=== PATIENT | male | born 1970 | race Caucasian/White ===

== ENCOUNTER 2020-02-29 15:01 | Emergency (ER) | payer BC, SELFPAY ==
[2020-02-29 15:28] VITALS: BP 152/90; PULSE 89; RESP 18; TEMP 36.7; O2SAT 96
--- NOTE | 2020-02-29 15:35 | ED.DENTAL ---
HPI - Dental/Oral General Chief complaint: Dental/Oral Stated complaint: Swollen left side of face Time Seen by Provider: 02/29/20 15:36 Source: patient and RN notes reviewed History of Present Illness HPI Narrative: Patient is a 49-year-old male that presents the urgent care with complaints of upper left dental pain. Patient states that he got his tooth pulled on Tuesday and he developed swelling and pain within the last couple days. Patient states that he has continued to smoke but did wait 48 hours after the procedure. Denies any fever, chills, nausea, vomiting. Patient states he has been on clindamycin and tramadol and his dentist told him to be seen at the urgent care if his pain was too severe to wait until Tuesday next week. No other acute complaints. No acute distress noted. Patient aware of the plan of care. Related Data Home Medications Medication Instructions Recorded Confirmed albuterol sulfate 90 mcg/actuation 2 puff INHALATION Q4H PRN gm 09/25/19 aerosol inhaler atorvastatin 02/29/20 clindamycin HCl 02/29/20 glipizide mg 02/29/20 sitagliptin-metformin [Janumet XR] tablet PO 02/29/20 tramadol mg 02/29/20 Allergies Allergy/AdvReac Type Severity Reaction Status Date / Time Penicillins Allergy Unknown Vomiting Verified 12/24/19 15:36 Review of Systems Review of Systems: Narrative: CONSTITUTIONAL: Denies fever, chills, or sweats. EYES: Denies visual changes, redness, or discharge. ENT: Denies rhinorrhea, congestion, sore throat, or otalgia. Reports of left upper dental pain CARDIOVASCULAR: Denies chest pain, palpitations, or edema. RESPIRATORY: Denies cough or dyspnea. GASTROINTESTINAL: Denies abdominal pain, nausea, vomiting, or diarrhea. GENITOURINARY: Denies dysuria or hematuria. SKIN: Denies rash or itching. MUSCULOSKELETAL: Denies back pain, joint pain, or myalgia. NEUROLOGIC: Denies headache, numbness, or weakness. All other systems reviewed are negative, except as documented in HPI. [facility] Social History Social History Smoking packs per day: 1 Smoking cigarettes per day: 20.0 Years smoked: 30 Smoking pack-years: 30.00 Smoking status: Current every day smoker Tobacco type: cigarettes Second hand tobacco smoke exposure: Yes Alcohol intake: current Substance use: never Gender identity (if verbalized by the patient): Male Spiritual care concerns: No Agree to blood products: Yes Comments At the time of my signature, I reviewed and agree with the nursing past medical, surgical, social, and family history. There is no relevant family history pertinent to the patient complaint. Exam Narrative: Exam Narrative: GENERAL: This is a well-nourished, well-developed patient, in no apparent distress. HEAD: normocephalic, atraumatic. EYES: PERRL. Sclera clear/white. Vision is grossly intact. EARS: External ears normal NOSE: External nose normal with no obvious nasal discharge THROAT: Mucous membranes moist, posterior pharynx clear. DENTAL: Likely dry socket noted to upper left second premolar, tooth #13; notable edema noted to the left side of the upper and lower jawline with moderate tenderness NECK: Neck supple, non-tender without lymphadenopathy, masses or thyromegaly. SKIN: warm, intact with no suspicious lesions or rash, good texture and turgor. NEURO: awake, alert, and oriented to person, place and time. There were no obvious focal neurologic abnormalities. EXTREMITIES: No clubbing, cyanosis, or edema. Course Vital Signs Vital signs: Vital Signs Temperature 98.0 F 02/29/20 15:28 Pulse Rate 89 02/29/20 15:28 Respiratory Rate 18 02/29/20 15:28 Blood Pressure 152/90 H 02/29/20 15:28 Pulse Oximetry 96 02/29/20 15:28 Temperature 98.0 F 02/29/20 15:28 Pulse Rate 89 02/29/20 15:28 Respiratory Rate 18 02/29/20 15:28 Blood Pressure 152/90 H 02/29/20 15:28 Pulse Oximetry 96 02/29/20 15:28
== END 2020-02-29 16:10 | disposition home or self-care (01) ==
PROVIDERS: Emergency Provider Nurse Practitioner Family; PCP Family Medicine
DX: M27.3 Alveolitis of jaws (principal); K08.89 Other specified disorders of teeth and supporting structures; F17.210 Nicotine dependence, cigarettes, uncomplicated
CPT/HCPCS: 99213; G0463

== ENCOUNTER 2020-04-07 20:28 | Inpatient (IN) | payer BC, SELFPAY ==
--- NOTE | ~2020-04-07 | MR_ITS ---
EXAMINATION: MR MRCP wo/w con/w 3D wo ind DATE: 04/08/2020 11:19 INDICATION: Acute pancreatitis. TECHNIQUE: Magnetic resonance imaging (MRI) of the abdomen was performed without and with 15 mL Multi Jim intravenous contrast. Sequences included coronal T2-weighted FS FSE, coronal T2-weighted FSE, a xial T1-weighted LAVA, coronal FS FIESTA, axial dual-echo T1-weighted SPGR, coronal lava-FLEX, sagitt al T2-weighted FSE, axial T2-weighted FSE, and axial DWI. Thick-slab T2-weighted FSE images were obta ined for magnetic resonance cholangiopancreatography (MRCP). Maximum intensity projection 3-D reconst ructions of the volumetric data were created by the technologist. Postcontrast sequences included cor onal LAVA-flex and time course of axial T1-weighted LAVA. COMPARISON: Abdomen ultrasound 04/08/2020, CT abdomen and pelvis 04/07/2020 FINDINGS: ABDOMEN MRI: There is diffuse hepatic steatosis. The gallbladder, spleen, adrenal glands, and right k idney are normal. There are cysts in left kidney measuring up to 5 mm. There is edema around the head of the pancreas, consistent with acute interstitial pancreatitis. There are no dilated loops of tabatha l. There are no pathologically enlarged lymph nodes. There is no free intraperitoneal fluid. ABDOMEN MRCP: The common duct is normal and measures 3 mm. No choledocholithiasis. IMPRESSION: 1. Mild acute interstitial pancreatitis. 2. Diffuse hepatic steatosis. Reviewed, dictated and finalized at location A.
--- NOTE | ~2020-04-07 | CT_ITS ---
EXAMINATION: CT abdomen pelvis w con EXAM DATE: 04/07/2020 22:55 INDICATION: Low abdominal pain. TECHNIQUE: Spiral CT of the abdomen and pelvis was performed following intravenous injection of 100 m L Omnipaque 350. Axial, coronal and sagittal images were reviewed. The dose-length product (DLP) fo r this examination was 601.21 mGy-cm. The exposure was tailored according to patient size (auto mA e xposure control), and iterative reconstruction (ASIR) was used as additional dose reduction technique . Comparison is made to prior examination from 08/31/2015. FINDINGS: The liver, spleen, adrenal glands and pancreas are unremarkable. Gallbladder is unremarkab le. No biliary obstruction. Portal and splenic veins are patent. Kidneys enhance symmetrically. T here is no hydronephrosis. The prostate is unremarkable. The bladder is unremarkable. There is no retroperitoneal or pelvic lymphadenopathy. Probable appendectomy. The stomach and small bowel are unremarkable. There is expected amount of co lonic stool. No free intraperitoneal gas. The heart is normal in size. There are no pericardial or pleural effusions. The lung bases are unremarkable. There are no osteoblastic or osteolytic lesi ons identified. IMPRESSION: 1. No acute intra-abdominal findings. Reviewed, dictated and finalized at location A.
--- NOTE | ~2020-04-07 | US_ITS ---
EXAMINATION: US right upper quadrant DATE: 04/08/2020 07:46 INDICATION: Right upper quadrant abdominal pain. TECHNIQUE: Multiple grayscale and Doppler ultrasound images of the abdomen were obtained. COMPARISON: CT abdomen and pelvis 04/07/2020 FINDINGS: The visualized portions of the head of the pancreas are normal. There is diffuse hepatic st eatosis. There is normal flow in main portal vein. The gallbladder is normal in size. No gallstones o r gallbladder wall thickening. There was no sonographic Ambrocio sign. The common duct is normal and me asures 4 mm. IMPRESSION: 1. Diffuse hepatic steatosis. Reviewed, dictated and finalized at location A.
[2020-04-07 20:36] VITALS: BP 126/93; PULSE 103; RESP 18; TEMP 36.3; O2SAT 99
[2020-04-07 21:00] LABS: Basophils Absolute Auto 0.1 K/mm3 (0.0-0.1); Basophils Percent Auto 0.5 % (0.2-1.2); Eosinophils Absolute Auto 0.3 K/mm3 (0-0.3); Eosinophils Percent Auto 2.3 % (0-4.4); Hematocrit 45.7 % (42.0-52.0); Hemoglobin 16.5 g/dL (14.0-18.0); Immature Granulocyte Absolute 0.03 K/mm3 (0.00-0.031); Immature Granulocyte Percent A 0.3 % (0-0.5); Lymphocytes Absolute Auto 3.15 K/mm3 (0.9-3.2); Lymphocytes Percent Auto 26.3 % (18.3-44.2); Mean Corpuscular HGB Conc 36.1 g/dl (32-36); Mean Corpuscular Hemoglobin 32.2 pg (26-34); Mean Corpuscular Volume 89.1 fl (80-100); Mean Platelet Volume 10.1 fl (7.4-10.4); Monocytes Absolute Auto 1.1 K/mm3 (0.1-0.6); Monocytes Percent Auto 8.8 % (2.6-8.5); Neutrophils Absolute Auto 7.4 K/mm3 (1.3-6.7); Neutrophils Percent Auto 61.8 % (45.5-73.1); Platelet Count Result 310 k/mm3 (150-375); Red Blood Count 5.13 M/mm3 (4.6-6.20); Red Cell Distribution Width 11.7 % (11.5-14.5)
[2020-04-07 21:08] LABS: Add Urine Microscopic? YES; Appearance Urine Clear (Clear); Bilirubin Urine Negative (Negative); Blood Urine Negative (Negative); Color Urine Yellow (Yellow); Glucose Urine UA 3+ mg/dL (Negative); Ketones Urine Trace mg/dL (Negative); Leukocyte Esterase Ur Negative LEU/UL (Negative); Nitrate Urine Negative (Negative); Protein Urine Negative (Negative); RBC Urine 0-2 /hpf (0-2); Specific Grav Ur 1.023 (1.001-1.035); Squamous Epithelial Cell Urine Rare /hpf (Few); Urobilinogen Urine Negative mg/dL (<2.0); WBC Urine 0-3 /hpf
[2020-04-07 21:17] LABS: Alanine Aminotransferase 12 U/L (4-50); Albumin Level 4.2 g/dL (3.5-5.1); Alkaline Phosphatase 85 U/L (38-126); Aspartate Amino Transferase 18 U/L (17-59); Bilirubin,Total 0.6 mg/dL (0.2-1.3); Blood Urea Nitrogen 12 mg/dL (9-20); Calcium 8.9 mg/dL (8.4-10.2); Carbon Dioxide 26 mmol/L (22-30); Chloride 99 mmol/L (98-107); Estimated CRCL calculation 110 ml/min; Estimated Glomerular Filt Rate > 60; Glucose 315 mg/dL (75-110); Sodium 133 mmol/L (137-145)
[2020-04-07 21:24] LABS: Lipase 2728 U/L (23-300)
[2020-04-07 22:01] VITALS: BP 136/74; PULSE 80; RESP 19; O2SAT 97
--- NOTE | 2020-04-07 22:32 | ED.ABDPAIN ---
HPI - Abdominal Pain General Chief Complaint: Abdominal Pain Stated Complaint: gallbladder Time Seen by Provider: 04/07/20 22:03 Source: patient Mode of arrival: ambulatory Limitations: no limitations History of Present Illness HPI narrative: This patient is a 49 year old male who presents for evaluation of right upper abdominal pain . He states he has had constant right upper abdominal pain for over 1 week and his pain has continued to worsen. His pain radiates around to his right flank . He has associated nausea but no vomiting. He denies diarrhea but he states his stool is loose due to taking laxatives. He was evaluated by his primary care physician today and he was told he had gallbladder disease. But patient states he has not had official testing diagnosing him with gallstones. MD elicited complaint: abdominal pain Onset (ago): week(s) (1) Related Data Home Medications Medication Instructions Recorded Confirmed ertugliflozin 5 mg tablet 5 mg PO QAM 03/24/20 04/08/20 esomeprazole magnesium [Nexium] 40 mg PO DAILY 04/08/20 04/08/20 sitagliptin-metformin [Janumet XR] 1 tablet PO BID 04/08/20 04/08/20 Allergies Allergy/AdvReac Type Severity Reaction Status Date / Time Penicillins Allergy Unknown Vomiting Verified 04/07/20 16:04 clindamycin Allergy Swelling Verified 04/07/20 16:04 Review of Systems Review of Systems: All systems reviewed & are unremarkable except as noted in HPI and below Constitutional: Constitutional: Denies chills and Denies fever(s) Gastrointestinal: Gastrointestinal: Reports abdominal pain, Denies constipation, Reports nausea and Denies vomiting Genitourinary: Genitourinary: Denies hematuria Musculoskeletal: Musculoskeletal: Reports back pain PMF Past Medical History Medical History Diabetes mellitus Hyperlipidemia Tobacco abuse Surgical History Surgical History History of appendectomy History of tonsillectomy Family History Family History (Updated 04/08/20 @ 01:42 by Francie Gonzalez RN) Mother Family history of diabetes mellitus in first degree relative Hypertension Asthma Renal disease Grandparent Family history of malignant neoplasm of uterus Family history of malignant neoplasm of brain Sibling Asthma Daughter Asthma Other Chronic obstructive pulmonary disease uncle Father Family history of diabetes mellitus in first degree relative Hypertension Social History Social History Smoking packs per day: 2 Smoking cigarettes per day: 40.0 Years smoked: 30 Smoking pack-years: 60.00 Smoking status: Heavy tobacco smoker Tobacco type: cigarettes Second hand tobacco smoke exposure: Yes Alcohol intake: former Drinks per week: 6 Substance use: never Gender identity (if verbalized by the patient): Male Spiritual care concerns: No Agree to blood products: Yes Exam Narrative: Exam Narrative: GENERAL: Well-appearing, well-nourished, and in no acute distress. HEAD: Normocephalic, atraumatic EYES: PERRLA and EOMI, conjunctiva clear without discharge THROAT:Mucous membranes moist, Oropharynx normal without erythema, exudate, peritonsillar swelling or fluctuance NECK: Supple, without lymphadenopathy or mass RESPIRATORY: No respiratory distress, Airway patent, Respirations non-labored, Clear to auscultation without rales, rhonchi or wheeze HEART: Regular rate and rhythm. No murmur heard. Normal peripheral pulses. ABDOMEN: Soft,RUQ, nondistended, normal active bowel sounds. No masses. No rebound or guarding, No organomegaly. EXTREMITIES: No edema, normal strength with full range of motion. SKIN: Warm, dry, normal color without rash NEURO: Alert and oriented x3. CN 2-12 grossly intact. No focal deficits. PSYCH: Normal mood and affect. Course Reevaluati
[2020-04-07] MEDS: ONDANSETRON INJ 4 MG/2 ML VIAL IV PUSH (22:37)
[2020-04-07] MEDS: MORPHINE SULFATE 4 MG/ML INJ IV PUSH (22:39)
--- NOTE | 2020-04-07 22:56 | PC.NURSE ---
Patient in CT
[2020-04-07] MEDS: LACTATED RINGERS 1,000 ML 999 ML IV CONT (23:04)
[2020-04-07 23:09] VITALS: TEMP 36.3
[2020-04-07 23:11] VITALS: BP 128/78; PULSE 82; RESP 22; O2SAT 95
[2020-04-08 00:37] VITALS: BP 123/74; PULSE 86; RESP 16; TEMP 36.8; O2SAT 100
[2020-04-08 01:25] VITALS: BP 114/72; PULSE 70; RESP 18; TEMP 36.6; O2SAT 97; BMI 27.6
--- NOTE | 2020-04-08 01:31 | ADMGEN ---
This patient, Sesar Greenwood, was admitted to [facility] Surg Room 322-01. Patient/family oriented to hospital policies and general routines including ID bracelet, bed and alarms, visiting hours, pain management, procedures, bathroom and other care routines, personal items, smoking policy, room service/diet, and visiting hours. Valuables list has been completed. Information on how to activate the Rapid Response Team has been discussed. Patient/Family are encouraged to report perceived risks to care and to ask questions if they do not understand what they are told or what they should do.
[2020-04-08] MEDS: MORPHINE SULFATE 4 MG/ML INJ IV PUSH ×5 (01:49→21:08)
[2020-04-08] MEDS: LACTATED RINGERS 1,000 ML 125 ML IV CONT ×3 (01:57→17:10)
[2020-04-08 06:00] VITALS: BP 121/81; PULSE 85; RESP 18; TEMP 37; O2SAT 92
[2020-04-08] MEDS: PANTOPRAZOLE SODIUM IV 40 MG VIAL IV PUSH (08:30)
[2020-04-08] MEDS: ONDANSETRON INJ 4 MG/2 ML VIAL IV PUSH ×4 (08:30→21:12)
--- NOTE | 2020-04-08 09:10 | PM.IMHP ---
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 He reports that he developed RUQ/epigastric abdominal pain radiating to the right upper back/flank last Tuesday (03/29) which has progressively worsened. He saw his PCP yesterday and RUQ US and STAT labs were ordered. He reports that his pain became so severe last night that he decided to proceed to the ED for further evaluation. He also reports associated nausea and anorexia. He initially thought he was constipated so he tried Gas-X and laxatives without relief. He reports that pain is worse lying back and better leaning forward. He denies diarrhea. He denies vomiting but does note dry heaves. He reports that he was recently prescribed ertugliflozin approximately 2 weeks ago. He denies any other medication changes. He denies alcohol use. He denies chest pain, shortness of breath, and palpitations. He has no other concerns at this time and reports that his pain is improving. He reports that he has not taken his PO hypoglycemic agents in 1 week due to his pain. Initial workup in the ED revealed WBC 12,000, Hb 16.5, Hct 45.7, sodium 133, and glucose 315. CMP was otherwise unremarkable. LFTs were within normal limits with AST 18, ALT 12, and ALP 85. Bilirubin was normal at 0.6. Lipase was 2,728. UA had 3+ glucose and was otherwise unremarkable. CT abd/pelvis revealed normal pancreas and gallbladder with no other acute intra-abdominal findings. RUQ US was performed today and revealed diffuse hepatic steatosis. The gallbladder was normal in size without gallstones or gallbladder wall thickening. The common bile duct was normal at 4mm. He was admitted to the hospitalist service for acute pancreatitis. He also reports that he was treated for a gingival abscess which has resolved. He follows with his dentist for peridontitis and reports no acute issues at this time. Review of Systems Review of Systems: Narrative: Constitutional: Denies subjective fever. Reports occasional chills. Reports fatigue. Reports decreased appetite due to pain. Eyes: Reports occasional blurred vision when his blood sugars are high. Denies acute vision change or pain. No additional eye complaints. ENT: Denies change in hearing, nasal congestion, dysphagia, odynophagia, and sore throat. Cardiovascular: Denies palpitations and chest pain. Denies PND and orthopnea. Denies dyspnea on exertion. Respiratory: Denies cough and shortness of breath. Gastrointestinal: As above in HPI. Genitourinary: Denies dysuria, frequency, urgency, and hesitancy. Musculoskeletal: Denies joint pain and swelling. Denies muscle cramps and weakness. Skin: Denies lesions and wounds. Neurologic: Denies focal weakness, paresthesias, confusion, and speech change. Psychiatric: Denies mood change. Denies anxiety and depression. Hematologic: Reports occasional bruising. Denies bleeding. All systems reviewed & are unremarkable except as noted in HPI and below PMFSH Past Medical History Medical History Diabetes mellitus Hyperlipidemia Neuropathy Tobacco abuse Surgical History Surgical History History of appendectomy History of tonsillectomy Family History Family History (Updated 04/08/20 @ 09:45 by Ketty Edmond PA-C) Mother Hypertension Asthma Renal disease Diabetes mellitus Grandparent Family history of malignant neoplasm of uterus Family history of malignant neoplasm of brain Sibling Asthma Daughter Asthma Other Chronic obstructive pulmonary disease uncle Father Family history of diabetes mellitus in first degree relative Hypertension Social History Social
[2020-04-08 09:28] LABS: Glucose Point of Care 258 (65-105)
[2020-04-08] MEDS: ENOXAPARIN 40 MG/0.4 ML SYRINGE SUB-Q (12:28)
[2020-04-08] MEDS: INSULIN ASPART (*BKC) 100 UNITS/ML SUB-Q (12:28)
[2020-04-08 12:32] LABS: Hematocrit 42.5 % (42.0-52.0); Hemoglobin 15.1 g/dL (14.0-18.0); Mean Corpuscular HGB Conc 35.5 g/dl (32-36); Mean Corpuscular Hemoglobin 31.5 pg (26-34); Mean Corpuscular Volume 88.7 fl (80-100); Mean Platelet Volume 10.1 fl (7.4-10.4); Platelet Count Result 278 k/mm3 (150-375); Red Blood Count 4.79 M/mm3 (4.6-6.20); Red Cell Distribution Width 11.5 % (11.5-14.5); White Blood Count 13.4 K/mm3 (4.5-10.0)
[2020-04-08 12:45] LABS: Cholesterol 140 mg/dL (0-200); HDL Direct 21 mg/dL; Triglycerides 147 mg/dL (<150)
[2020-04-08 12:49] LABS: Alanine Aminotransferase 9 U/L (4-50); Albumin Level 3.6 g/dL (3.5-5.1); Alkaline Phosphatase 73 U/L (38-126); Aspartate Amino Transferase 19 U/L (17-59); Bilirubin,Total 0.6 mg/dL (0.2-1.3); Blood Urea Nitrogen 10 mg/dL (9-20); Calcium 8.6 mg/dL (8.4-10.2); Carbon Dioxide 28 mmol/L (22-30); Chloride 103 mmol/L (98-107); Estimated CRCL calculation 130 ml/min; Estimated Glomerular Filt Rate > 60; Glucose 239 mg/dL (75-110); Lipase 806 U/L (23-300); Sodium 134 mmol/L (137-145)
[2020-04-08 12:56] LABS: LDL Cholesterol Direct 101 mg/dL
[2020-04-08 13:01] VITALS: BMI 27.6
[2020-04-08 13:50] LABS: Hepatitis B Surface Antigen Negative (Negative)
[2020-04-08 13:51] LABS: HAV RESULT Negative (Negative); Hepatitis B Core IgM Result Negative (Negative)
[2020-04-08 14:00] VITALS: BP 115/59; PULSE 75; RESP 16; TEMP 36.9; O2SAT 92
[2020-04-08 14:13] LABS: Hepatitis C Virus Antibody Negative (Negative)
[2020-04-08 17:51] LABS: Glucose Point of Care 249 (65-105)
[2020-04-08 17:51] LABS: Glucose Point of Care 197 (65-105)
[2020-04-08 20:40] LABS: Glucose Point of Care 201 (65-105)
[2020-04-08 22:00] VITALS: BP 123/76; PULSE 60; RESP 18; TEMP 36.3; O2SAT 94
[2020-04-09 00:42] LABS: Glucose Point of Care 184 (65-105)
[2020-04-09] MEDS: MORPHINE SULFATE 4 MG/ML INJ IV PUSH ×4 (01:00→21:09)
[2020-04-09] MEDS: LACTATED RINGERS 1,000 ML 150 ML IV CONT ×2 (01:01→06:46)
[2020-04-09] MEDS: ONDANSETRON INJ 4 MG/2 ML VIAL IV PUSH ×2 (05:04→21:09)
[2020-04-09 05:45] LABS: Basophils Percent Auto 0.5 % (0.2-1.2); Eosinophils Absolute Auto 0.4 K/mm3 (0-0.3); Eosinophils Percent Auto 4.1 % (0-4.4); Hematocrit 41.4 % (42.0-52.0); Hemoglobin 14.7 g/dL (14.0-18.0); Immature Granulocyte Absolute 0.02 K/mm3 (0.00-0.031); Immature Granulocyte Percent A 0.2 % (0-0.5); Lymphocytes Percent Auto 35.3 % (18.3-44.2); Mean Corpuscular HGB Conc 35.5 g/dl (32-36); Mean Corpuscular Hemoglobin 31.6 pg (26-34); Monocytes Absolute Auto 0.9 K/mm3 (0.1-0.6); Monocytes Percent Auto 10.2 % (2.6-8.5); Neutrophils Absolute Auto 4.2 K/mm3 (1.3-6.7); Neutrophils Percent Auto 49.7 % (45.5-73.1); Platelet Count Result 254 k/mm3 (150-375); Red Blood Count 4.65 M/mm3 (4.6-6.20); Red Cell Distribution Width 11.4 % (11.5-14.5); White Blood Count 8.5 K/mm3 (4.5-10.0)
[2020-04-09 06:00] VITALS: BP 135/79; PULSE 64; RESP 18; TEMP 36.3; O2SAT 93
[2020-04-09 06:00] LABS: Alanine Aminotransferase 9 U/L (4-50); Albumin Level 3.3 g/dL (3.5-5.1); Alkaline Phosphatase 62 U/L (38-126); Aspartate Amino Transferase 17 U/L (17-59); Bilirubin,Total 0.6 mg/dL (0.2-1.3); Blood Urea Nitrogen 11 mg/dL (9-20); Calcium 8.6 mg/dL (8.4-10.2); Carbon Dioxide 30 mmol/L (22-30); Chloride 103 mmol/L (98-107); Estimated CRCL calculation 130 ml/min; Estimated Glomerular Filt Rate > 60; Glucose 193 mg/dL (75-110); Lipase 545 U/L (23-300); Magnesium 1.8 mg/dL (1.6-2.3); Phosphorus 3.7 mg/dL (2.5-4.5); Sodium 135 mmol/L (137-145)
[2020-04-09 06:54] LABS: Glucose Point of Care 187 (65-105)
[2020-04-09] MEDS: ENOXAPARIN 40 MG/0.4 ML SYRINGE SUB-Q (08:12)
[2020-04-09] MEDS: PANTOPRAZOLE SODIUM IV 40 MG VIAL IV PUSH (08:12)
[2020-04-09 11:15] VITALS: BMI 27.6
--- NOTE | 2020-04-09 12:32 | PM.IMPN ---
Progress Note: A&P Assessment and Plan (1) Acute pancreatitis: Code(s): K85.90 - Acute pancreatitis without necrosis or infection, unspecified Status: Acute Assessment and Plan: The patient reports RUQ/epigastric discomfort radiating to the right back. Pain is worse lying back and relieved sitting forward. Lipase was elevated at 2728 at presentation and is now [address] abd/pelvis was unremarkable and RUQ US showed no evidence of gallbladder disease. Etiology is unclear. He is on sitagliptin but this is not a new medication for him. He denies recent alcohol use. MRCP revealed mild acute interstitial pancreatitis and diffuse hepatic steatosis without any evidence of gallbladder disease. Lipid panel revealed no evidence of hypertriglyceridemia. He reports that his pain is improving and he denies nausea and vomiting. He is requesting to try to advance his diet. Advance to clear liquid diet today Hold sitagliptin at discharge Continue IV fluids Continue IV antiemetics and analgesics Continue to monitor lipase and CMP (2) Mixed hyperlipidemia: Code(s): E78.2 - Mixed hyperlipidemia Status: Chronic Assessment and Plan: Lipid panel revealed LDL 101, HDL 21, total cholesterol 140, and triglycerides 147. LFTs are WNL. Resume atorvastatin once tolerating PO intake (3) Tobacco abuse: Code(s): Z72.0 - Tobacco use Status: Chronic Assessment and Plan: The patient has a 60 pack-year smoking hx. He has declined nicotine patch at this time. Continue to encourage smoking cessation (4) Type 2 diabetes mellitus with hyperglycemia: Code(s): E11.65 - Type 2 diabetes mellitus with hyperglycemia Status: Chronic Assessment and Plan: Poorly controlled with most recent A1C 10.2 03/24. He was recently prescribed ertugliflozin approximately 2 weeks ago by his PCP. Blood sugars were reviewed with a few readings above target. HE will advance to CLD diet today. He met with the clinical perinatal educator today He will need to follow-up outpatient with his PCP for his diabetes management His PO hypoglycmeics are on hold for now. Hold sitagliptin at discharge as this can cause pancreatitis. Initiate hypoglycemic protocol Continue SSI, will increase to moderate dose SSI Continue Q6HR glucose monitoring until tolerating PO intake well Continue to monitor and resume PO hypoglycemics once he is able to tolerate PO intake well (5) DVT prophylaxis: Code(s): Z29.9 - Encounter for prophylactic measures, unspecified Status: Acute Assessment and Plan: Lovenox SQ (6) Hepatic steatosis: Code(s): K76.0 - Fatty (change of) liver, not elsewhere classified Status: Acute Assessment and Plan: RUQ US revealed diffuse hepatic steatosis. He will need to obtain better glycemic control. Hepatitis panel was negative. Encourage lifestyle modifications and follow-up with PCP for better glycemic control Subjective Date/time seen: 04/09/20 12:32 Interval history: Mr. Greenwood is seen and examined at bedside. He reports that his RUQ abdominal pain continues to improve. He reports that he did have pain last night but has not had any severe pain today. He is requesting to eat. He reports that he is passing flatus. He has not had a bowel movement yet. He denies nausea and vomiting. He denies headaches, dizziness, and lightheadedness. He denies subjective fever and chills. He denies shortness of breath and chest pain. He has no other concerns at this time. Review of Systems Review of Systems: All systems reviewed & are unremarkable except as noted in HPI and below Exam Narrative: Exam Narrative: General: Cooperative, pleasant, well-developed and well-nourished 49 y.o. male lying in the semi-recumbent position resting in no acute distress. HEENT: Normocephalic and atraumatic. Conjunctivae and lids normal. EOMI. Mucous m
[2020-04-09 12:47] LABS: Glucose Point of Care 186 (65-105)
[2020-04-09 14:00] VITALS: BP 128/67; PULSE 78; RESP 18; TEMP 36.5; O2SAT 96
[2020-04-09] MEDS: LACTATED RINGERS 1,000 ML 100 ML IV CONT (16:11)
[2020-04-09] MEDS: INSULIN ASPART (*BKC) 100 UNITS/ML SUB-Q (17:11)
[2020-04-09 18:28] LABS: Glucose Point of Care 282 (65-105)
[2020-04-09 21:18] LABS: Glucose Point of Care 269 (65-105)
[2020-04-09 22:00] VITALS: BP 125/61; PULSE 65; RESP 20; TEMP 36.4; O2SAT 95
[2020-04-10] MEDS: LACTATED RINGERS 1,000 ML 100 ML IV CONT (02:29)
[2020-04-10] MEDS: MORPHINE SULFATE 4 MG/ML INJ IV PUSH (03:31)
[2020-04-10] MEDS: ONDANSETRON INJ 4 MG/2 ML VIAL IV PUSH (03:31)
[2020-04-10 06:00] VITALS: BP 135/83; PULSE 70; RESP 20; TEMP 36.6; O2SAT 96
[2020-04-10 06:38] LABS: Alanine Aminotransferase 9 U/L (4-50); Albumin Level 3.6 g/dL (3.5-5.1); Alkaline Phosphatase 64 U/L (38-126); Aspartate Amino Transferase 17 U/L (17-59); Bilirubin,Total 0.7 mg/dL (0.2-1.3); Blood Urea Nitrogen 8 mg/dL (9-20); Carbon Dioxide 31 mmol/L (22-30); Chloride 103 mmol/L (98-107); Estimated CRCL calculation 130 ml/min; Estimated Glomerular Filt Rate > 60; Glucose 208 mg/dL (75-110); Lipase 333 U/L (23-300); Potassium 4.1 mmol/L (3.4-5.0); Sodium 138 mmol/L (137-145)
--- NOTE | 2020-04-10 07:40 | PC.NURSE ---
Outpatient referral started for initial DSMT and MNT. [facility] and Dr. Saenz.
[2020-04-10 08:18] LABS: Glucose Point of Care 233 (65-105)
[2020-04-10] MEDS: ENOXAPARIN 40 MG/0.4 ML SYRINGE SUB-Q (09:32)
[2020-04-10] MEDS: INSULIN ASPART (*BKC) 100 UNITS/ML SUB-Q (09:33)
[2020-04-10] MEDS: glipiZIDE 5 MG TABLET 10 MG PO (09:34)
[2020-04-10] MEDS: metFORMIN HCL 500 MG TABLET PO (09:34)
[2020-04-10] MEDS: ATORVASTATIN 20 MG TABLET PO (09:34)
[2020-04-10] MEDS: PANTOPRAZOLE 40 MG TABLET PO (09:35)
--- NOTE | 2020-04-10 09:55 | PM.DS ---
DS: Admitting Diagnosis Admitting Diagnosis Admitting Diagnosis: Acute pancreatitis without necrosis or infection, unspecified DS: Discharge Diagnosis Discharge Diagnosis (1) Acute pancreatitis: Code(s): K85.90 - Acute pancreatitis without necrosis or infection, unspecified Status: Acute (2) Mixed hyperlipidemia: Code(s): E78.2 - Mixed hyperlipidemia Status: Chronic (3) Tobacco abuse: Code(s): Z72.0 - Tobacco use Status: Chronic (4) Type 2 diabetes mellitus with hyperglycemia: Code(s): E11.65 - Type 2 diabetes mellitus with hyperglycemia Status: Chronic (5) Hepatic steatosis: Code(s): K76.0 - Fatty (change of) liver, not elsewhere classified Status: Acute DS: Summary Hospital Course Reason for hospitalization: RUQ abdominal pain and nausea Hospital Course: Sesar Greenwood is a 49 year old male with PMH significant for 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 He denied alcohol use. Initial workup in the ED revealed WBC 12,000, Hb 16.5, Hct 45.7, sodium 133, and glucose 315. CMP was otherwise unremarkable. LFTs were within normal limits with AST 18, ALT 12, and ALP 85. Bilirubin was normal at 0.6. Lipase was 2,728. UA had 3+ glucose and was otherwise unremarkable. CT abd/pelvis revealed normal pancreas and gallbladder with no other acute intra-abdominal findings. RUQ US was performed today and revealed diffuse hepatic steatosis. The gallbladder was normal in size without gallstones or gallbladder wall thickening. The common bile duct was normal at 4mm. He was treated with IV fluids, bowel rest, and PRN antiemetics and analgesics. He was admitted to the hospitalist service for acute pancreatitis. The etiology was unclear. He is on sitagliptin. MRCP revealed mild acute interstitial pancreatitis and diffuse hepatic steatosis without any evidence of gallbladder disease. Lipid panel revealed no evidence of hypertriglyceridemia. His pain improved and his diet was advanced and he tolerated this well. I spent extensive time (>20 minutes) discussing the importance of smoking cessation with the patient. Tighter glycemic control was also encouraged and he met with the diabetic educator as well. I discussed the importance of low carb diet, exercise, and glycemic control due to the presence of hepatic steatosis. Hepatitis panel was negative. His T2DM is poorly controlled with most recent A1C 10.2 03/24/20. Sitagliptin was held at discharge as this can cause pancreatitis. I discussed insulin with the pt and advised that this may be the best option for him. I spoke with his PCP, Dr. Saenz, and he will follow-up with his PCP within 1 week for diabetes management. His lipase trended down and his sx improved. He was tolerating a consistent carb diet well. He requested to go home. He was discharged in stable condition on the afternoon of 04/10/20. Time spent discussing smoking cessation with patient: more than 10 minutes Status at Discharge Functional status at discharge: independent ambulation Overall status at discharge: patient is back to baseline Time Spent with Patient Time attestation: Total time spent providing and/or coordinating discharge services: 40 minutes Exam Narrative: Exam Narrative: Vitals at Presentation: Temp Pulse Resp BP Pulse Ox 97.3 F L 103 H 18 126/93 H 99 04/07/20 20:36 04/07/20 20:36 04/07/20 20:36 04/07/20 20:36 04/07/20 20:36 Vitals at Discharge: Temp Pulse Resp BP Pulse Ox 97.8 F 70 20 135/83
== END 2020-04-10 14:55 | disposition home or self-care (01) | DRG 440 ==
LOC: ANHED 04-08 00:31 → ANH3MEDSUR 04-08 01:12
PROVIDERS: Physician Assistant; Admitting Provider Internal Medicine; Emergency Provider General Practice; PCP Family Medicine; Visit Provider Family Medicine
DX: K85.90 Acute pancreatitis without necrosis or infection, unspecified (principal); E11.40 Type 2 diabetes mellitus with diabetic neuropathy, unspecified; K76.0 Fatty (change of) liver, not elsewhere classified; E11.65 Type 2 diabetes mellitus with hyperglycemia; E78.2 Mixed hyperlipidemia; F17.210 Nicotine dependence, cigarettes, uncomplicated; Z79.84 Long term (current) use of oral hypoglycemic drugs
CPT/HCPCS: 36415; 74177; 74183; 76376; 76705; 80053; 80061; 80074; 81001; 83690; 83735; 84100; 85025; 85027; 96361; 96372; 96374; 96375; 96376; 99285; A9270; A9577; C9113; G0378; J1650; J1815; J2270; J2405; J7120; Q9967

== ENCOUNTER 2020-06-29 07:09 | Emergency (ER) | payer BC, SELFPAY ==
--- NOTE | ~2020-06-29 | CT_ITS ---
EXAMINATION: CT abdomen pelvis wo con DATE: 06/29/2020 08:06 INDICATION: Bilateral flank pain TECHNIQUE: Computed tomography (CT) of the abdomen and pelvis was performed without intravenous contr ast. The dose-length product (DLP) was 683.96 mGy-cm. Automated exposure control and iterative recons truction technique were employed. COMPARISON: 04/07/2020 FINDINGS: Minimal dependent atelectasis is present in the lung bases. The heart size is normal. The l iver, spleen, pancreas, gallbladder, and right adrenal gland are normal. There is a 7 mm low-density nodule of the left adrenal gland, consistent with an adenoma. The kidneys are unremarkable. No stones are identified in the kidneys, ureters, or bladder. There is no hydronephrosis or hydroureter. There is mild lumbar spondylosis. A moderate volume of colonic stool is present. IMPRESSION: 1. No CT correlate for the patient's symptoms. Reviewed, dictated and finalized at location A.
[2020-06-29 07:23] VITALS: BP 137/89; PULSE 80; RESP 18; TEMP 36.7; O2SAT 100
[2020-06-29 07:40] LABS: Basophils Absolute Auto 0.1 K/mm3 (0.0-0.1); Basophils Percent Auto 0.8 % (0.2-1.2); Eosinophils Absolute Auto 0.3 K/mm3 (0-0.3); Eosinophils Percent Auto 2.8 % (0-4.4); Hematocrit 48.9 % (42.0-52.0); Hemoglobin 17.6 g/dL (14.0-18.0); Immature Granulocyte Absolute 0.03 K/mm3 (0.00-0.031); Immature Granulocyte Percent A 0.3 % (0-0.5); Lymphocytes Absolute Auto 3.02 K/mm3 (0.9-3.2); Mean Corpuscular Hemoglobin 32.1 pg (26-34); Mean Corpuscular Volume 89.1 fl (80-100); Mean Platelet Volume 10.4 fl (7.4-10.4); Monocytes Absolute Auto 0.8 K/mm3 (0.1-0.6); Monocytes Percent Auto 8.3 % (2.6-8.5); Neutrophils Absolute Auto 5.8 K/mm3 (1.3-6.7); Neutrophils Percent Auto 57.8 % (45.5-73.1); Platelet Count Result 283 k/mm3 (150-375); Red Blood Count 5.49 M/mm3 (4.6-6.20); Red Cell Distribution Width 11.5 % (11.5-14.5); White Blood Count 10.1 K/mm3 (4.5-10.0)
--- NOTE | 2020-06-29 07:43 | ED.BACK ---
HPI - Back Pain/Injury General Chief Complaint: Abdominal Pain <Sergei Washington MD - Last Filed: 06/29/20 15:13> Stated Complaint: side, back pain <Sergei Washington MD - Last Filed: 06/29/20 15:13> Time Seen by Provider: 06/29/20 07:21 <Sergei Washington MD - Last Filed: 06/29/20 15:13> History of Present Illness HPI Narrative: Pain in the bilateral flank/low back for about 3 weeks. Started on the right. Now bilateral, but worse on the left. Constant dull ache with intermittent sharp pains. Worse with movement. Better with lyinging down, especially prone. No vomiting, dyuria, hematuria. <Sergei Washington MD - Last Filed: 06/29/20 15:13> Related Data Home Medications: Home Medications Medication Instructions Recorded Confirmed esomeprazole magnesium [Nexium] 40 mg PO DAILY 04/08/20 04/28/20 <Sergei Washington MD - Last Filed: 06/29/20 15:13> Allergies/Adverse Reactions: Allergies Allergy/AdvReac Type Severity Reaction Status Date / Time clindamycin Allergy Intermediate Swelling Verified 04/28/20 16:07 Penicillins Allergy Unknown Vomiting Verified 04/28/20 16:07 <Sergei Washington MD - Last Filed: 06/29/20 15:13> Review of Systems Review of Systems: All systems reviewed & are unremarkable except as noted in HPI and below <Sergei Washington MD - Last Filed: 06/29/20 15:13> All systems reviewed & are unremarkable except as noted in HPI and below <Raphael Edwards PA-C - Last Filed: 06/29/20 10:45> Constitutional: Constitutional: Denies fever(s) <Sergei Washington MD - Last Filed: 06/29/20 15:13> Cardiovascular: Cardiovascular: Denies chest pain <Sergei Washington MD - Last Filed: 06/29/20 15:13> Respiratory: Respiratory: Denies dyspnea <Sergei Washington MD - Last Filed: 06/29/20 15:13> Gastrointestinal: Gastrointestinal: Denies abdominal pain, Denies diarrhea, Reports nausea and Denies vomiting <Sergei Washington MD - Last Filed: 06/29/20 15:13> Genitourinary: Genitourinary: Denies hematuria and Denies dysuria <Sergei Washington MD - Last Filed: 06/29/20 15:13> Musculoskeletal: Musculoskeletal: Reports back pain <Sergei Washington MD - Last Filed: 06/29/20 15:13> Neurologic: Denies dizziness and Denies weakness <Sergei Washington MD - Last Filed: 06/29/20 15:13> PMF Past Medical History Medical History: Medical History Diabetes mellitus Hyperlipidemia Neuropathy Tobacco abuse <Sergei Washington MD - Last Filed: 06/29/20 15:13> Surgical History Surgical History: Surgical History History of appendectomy History of tonsillectomy <Sergei Washington MD - Last Filed: 06/29/20 15:13> Family History Family History: Family History Mother Diabetes mellitus Renal disease Hypertension Asthma Emphysema lung Grandparent Family history of malignant neoplasm of uterus Family history of malignant neoplasm of brain Sibling Asthma Daughter Asthma Other Chronic obstructive pulmonary disease uncle Father Family history of diabetes mellitus in first degree relative Hypertension <Sergei Washington MD - Last Filed: 06/29/20 15:13> Social History Social History: Social History Smoking packs per day: 2 Smoking cigarettes per day: 40.0 Years smoked: 30 Smoking pack-years: 60.00 Smoking status: Heavy tobacco smoker Tobacco type: cigarettes Second hand tobacco smoke exposure: Yes Alcohol intake: former Drinks per week: 6 Substance use: never 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
[2020-06-29 07:50] LABS: Alanine Aminotransferase 13 U/L (4-50); Albumin Level 4.3 g/dL (3.5-5.1); Alkaline Phosphatase 76 U/L (38-126); Anion Gap 6 mmol/L (8-16); Aspartate Amino Transferase 21 U/L (17-59); Bilirubin,Total 0.4 mg/dL (0.2-1.3); Blood Urea Nitrogen 14 mg/dL (9-20); Calcium 9.4 mg/dL (8.4-10.2); Carbon Dioxide 28 mmol/L (22-30); Chloride 102 mmol/L (98-107); Estimated CRCL calculation 145 ml/min; Estimated Glomerular Filt Rate > 60; Glucose 318 mg/dL (75-110); Lipase 80 U/L (23-300); Potassium 4.3 mmol/L (3.4-5.0); Sodium 136 mmol/L (137-145)
[2020-06-29 07:51] LABS: Add Urine Microscopic? YES; Appearance Urine Clear (Clear); Bilirubin Urine Negative (Negative); Blood Urine Negative (Negative); Color Urine Yellow (Yellow); Glucose Urine UA 3+ mg/dL (Negative); Ketones Urine Negative (Negative); Leukocyte Esterase Ur Negative LEU/UL (Negative); Mucus Urine Rare /lpf; Nitrate Urine Negative (Negative); Protein Urine 1+ mg/dL (Negative); Squamous Epithelial Cell Urine Occasional /hpf (Few); WBC Urine 0-3 /hpf
[2020-06-29 07:52] LABS: Specific Grav Ur 1.033 (1.001-1.035)
[2020-06-29 08:11] LABS: Creatine Kinase 48 U/L (55-170)
[2020-06-29] MEDS: SODIUM CHLORIDE 0.9% IV 1,000 ML 999 ML IV CONT (08:27)
[2020-06-29 08:33] VITALS: BP 144/85; PULSE 70; RESP 18; O2SAT 96
[2020-06-29] MEDS: CYCLOBENZAPRINE HCL 10 MG TABLET PO (09:06)
[2020-06-29] MEDS: KETOROLAC 30 MG/ML VIAL (*BKC) IV PUSH (09:07)
[2020-06-29 09:44] VITALS: TEMP 36.7
[2020-06-29 09:49] VITALS: BP 135/94; PULSE 76; RESP 18; O2SAT 96
[2020-06-29 10:55] VITALS: BP 132/77; PULSE 78; RESP 18; O2SAT 98
== END 2020-06-29 10:57 | disposition home or self-care (01) ==
PROVIDERS: Emergency Provider Emergency Medicine; PCP Family Medicine
DX: M54.5 Low back pain (principal); E78.5 Hyperlipidemia, unspecified; E11.40 Type 2 diabetes mellitus with diabetic neuropathy, unspecified; F17.210 Nicotine dependence, cigarettes, uncomplicated
CPT/HCPCS: 36415; 74176; 80053; 81001; 82550; 83690; 85025; 96361; 96374; 96375; 99284; A9270; J1885; J3360; J7030

== ENCOUNTER 2021-11-17 11:05 | Emergency (ER) | payer BC, SELFPAY ==
--- NOTE | ~2021-11-17 | CT_ITS ---
EXAMINATION: CT abdomen pelvis wo con DATE: 11/17/2021 14:40 INDICATION: Nausea, vomiting, and diarrhea. Epigastric abdominal pain. TECHNIQUE: Computed tomography (CT) of the abdomen and pelvis was performed without intravenous contr ast. Automated exposure control and iterative reconstruction technique were employed. The dose-length product was 472.28 mGy-cm. COMPARISON: CT abdomen and pelvis 06/29/2020 FINDINGS: The visualized portions of the lung bases demonstrate minimal atelectasis. No pleural effus ion. The heart size is normal. No pericardial effusion. The liver, gallbladder, spleen, pancreas, adr enal glands, and kidneys are normal. There is no urolithiasis. The prostate is mildly enlarged. There is prominent fat in left inguinal canal that may be a hernia. There are changes of appendectomy. The re are no pathologically enlarged lymph nodes. There is no free intraperitoneal fluid. There is mild thoracolumbar spondylosis. IMPRESSION: 1. No etiology for the patient's symptoms. Reviewed, dictated and finalized at location B. [employer]
[2021-11-17 11:10] VITALS: BP 139/79; PULSE 88; RESP 18; TEMP 36.2; O2SAT 98
[2021-11-17 13:09] LABS: Basophils Absolute Auto 0.1 K/mm3 (0.0-0.1); Basophils Percent Auto 0.8 % (0.2-1.2); Eosinophils Absolute Auto 0.7 K/mm3 (0-0.3); Eosinophils Percent Auto 5.1 % (0-4.4); Hematocrit 45.4 % (42.0-52.0); Hemoglobin 16.1 g/dL (14.0-18.0); Immature Granulocyte Absolute 0.04 K/mm3 (0.00-0.031); Immature Granulocyte Percent A 0.3 % (0-0.5); Lymphocytes Absolute Auto 3.54 K/mm3 (0.9-3.2); Lymphocytes Percent Auto 26.8 % (18.3-44.2); Mean Corpuscular HGB Conc 35.5 g/dl (32-36); Mean Corpuscular Hemoglobin 32.1 pg (26-34); Mean Corpuscular Volume 90.6 fl (80-100); Mean Platelet Volume 10.2 fl (7.4-10.4); Monocytes Absolute Auto 1.3 K/mm3 (0.1-0.6); Monocytes Percent Auto 9.8 % (2.6-8.5); Neutrophils Absolute Auto 7.6 K/mm3 (1.3-6.7); Neutrophils Percent Auto 57.2 % (45.5-73.1); Platelet Count Result 291 k/mm3 (150-375); Red Blood Count 5.01 M/mm3 (4.6-6.20); Red Cell Distribution Width 11.9 % (11.5-14.5); White Blood Count 13.2 K/mm3 (4.5-10.0)
[2021-11-17 13:12] LABS: Add Urine Microscopic? YES; Appearance Urine Clear (Clear); Bilirubin Urine Negative (Negative); Blood Urine Negative (Negative); Color Urine Yellow (Yellow); Glucose Urine UA 3+ mg/dL (Negative); Ketones Urine Negative (Negative); Leukocyte Esterase Ur Negative LEU/UL (Negative); Nitrate Urine Negative (Negative); Protein Urine Negative (Negative); RBC Urine 0-2 /hpf (0-2); Specific Grav Ur 1.017 (1.001-1.035); Squamous Epithelial Cell Urine Rare /hpf (Few); Urobilinogen Urine Negative mg/dL (<2.0); WBC Urine 0-3 /hpf
[2021-11-17 13:21] LABS: Alanine Aminotransferase 9 U/L (4-50); Albumin Level 4.2 g/dL (3.5-5.1); Alkaline Phosphatase 68 U/L (38-126); Anion Gap 10 mmol/L (8-16); Aspartate Amino Transferase 22 U/L (17-59); Bilirubin,Total 0.7 mg/dL (0.2-1.3); Blood Urea Nitrogen 15 mg/dL (9-20); Calcium 9.2 mg/dL (8.4-10.2); Carbon Dioxide 25 mmol/L (22-30); Chloride 105 mmol/L (98-107); Estimated CRCL calculation 94 ml/min; Estimated Glomerular Filt Rate > 60; Glucose 97 mg/dL (65-110); Lipase 146 U/L (23-300); Sodium 140 mmol/L (137-145)
[2021-11-17 13:52] VITALS: O2SAT 97
[2021-11-17 13:53] VITALS: BP 119/82; O2SAT 96
[2021-11-17 14:00] VITALS: BP 126/80; PULSE 78; RESP 18; O2SAT 95
--- NOTE | 2021-11-17 14:05 | ED.GENADULT ---
HPI - General Adult General Chief complaint: Abdominal Pain Stated complaint: BOWEL OBSTRUCTION Time Seen by Provider: 11/17/21 13:43 Source: patient and RN notes reviewed Limitations: no limitations History of Present Illness HPI narrative: 51-year-old male presenting to the emergency department for evaluation of nausea vomiting and diarrhea. Patient was seen at the [facility] today and was instructed to present to the emergency department for evaluation of a suspected small bowel obstruction. Patient began developing symptoms a week ago today. Patient describes he had a lot of nausea vomiting and diarrhea. Patient states the entire course of the illness he has had intermittent diarrhea. Patient states that he began to feel improved over the weekend and did have a normal diet and then had acute worsening of his symptoms again this morning causing him to present to the urgent care for evaluation. Patient denies any prior history of small bowel obstruction. Patient does have a prior history of pancreatitis secondary to a diabetes medication and also has history of appendicitis. Patient denies any changes in his meds. Patient states he does still have some nausea but declined any medications for nausea. Patient also declined any medications for pain control at this time. Patient was admitted and plan for labs additional imaging and fluids. All questions concerns were addressed. Related Data Home Medications Medication Instructions Recorded Confirmed esomeprazole magnesium [Nexium] 40 mg PO DAILY 04/08/20 11/09/21 ketorolac 0.5 % eye drops 1 drp EACH EYE Q6H 11/09/21 11/09/21 Allergies Allergy/AdvReac Type Severity Reaction Status Date / Time clindamycin Allergy Intermediate Swelling Verified 11/17/21 11:13 Penicillins Allergy Unknown Vomiting Verified 11/17/21 11:13 Review of Systems Review of Systems: CONSTITUTIONAL: Denies fever, chills, or sweats. EYES: Denies visual changes, redness, or discharge. ENT: Denies rhinorrhea, congestion, sore throat, or otalgia. CARDIOVASCULAR: Denies chest pain, palpitations, or edema. RESPIRATORY: Denies cough or dyspnea. GASTROINTESTINAL: Nausea vomiting and diarrhea GENITOURINARY: Denies dysuria or hematuria. SKIN: Denies rash or itching. MUSCULOSKELETAL: Denies back pain, joint pain, or myalgia. NEUROLOGIC: Denies headache, numbness, or weakness. PSYCHIATRIC: Denies anxiety or depression. [facility] Past Medical History Medical History BMI 28.0-28.9,adult BMI 29.0-29.9,adult BMI greater than 30 Diabetes mellitus Hyperlipidemia Left shoulder pain Neuropathy Tobacco abuse Tobacco abuse Type 2 diabetes mellitus with retinopathy Surgical History Surgical History History of appendectomy History of tonsillectomy Family History Family History Mother Diabetes mellitus Renal disease Hypertension Asthma Emphysema lung Grandparent Family history of malignant neoplasm of uterus Family history of malignant neoplasm of brain Sibling Asthma Daughter Asthma Other Chronic obstructive pulmonary disease uncle Father Family history of diabetes mellitus in first degree relative Hypertension Social History Social History Smoking packs per day: 2 Smoking cigarettes per day: 40.0 Years smoked: 30 Smoking pack-years: 60.00 Tobacco type: cigarettes Second hand tobacco smoke exposure: Yes Alcohol intake: former Drinks per week: 6 Alcohol use details: 2-3 times per year Substance use: never 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
[2021-11-17 15:25] VITALS: BP 138/72; PULSE 76; RESP 18; O2SAT 99
== END 2021-11-17 15:34 | disposition home or self-care (01) ==
PROVIDERS: Emergency Medicine; Emergency Provider Emergency Medicine; PCP Family Medicine
DX: R19.7 Diarrhea, unspecified (principal); R11.2 Nausea with vomiting, unspecified; E78.5 Hyperlipidemia, unspecified; E11.40 Type 2 diabetes mellitus with diabetic neuropathy, unspecified; E11.319 Type 2 diabetes mellitus with unspecified diabetic retinopathy without macular edema; F17.210 Nicotine dependence, cigarettes, uncomplicated; Z79.84 Long term (current) use of oral hypoglycemic drugs; Z79.4 Long term (current) use of insulin; Z79.899 Other long term (current) drug therapy
CPT/HCPCS: 36415; 74176; 80053; 81001; 83690; 85025; 99284

== ENCOUNTER 2022-08-22 13:46 | Emergency (ER) | payer BC, SELFPAY ==
--- NOTE | ~2022-08-22 | XR_ITS ---
EXAMINATION: XR chest 2V Exam Date/Time: 08/22/2022 14:12 CDT HISTORY: sob, cough, CHEST PAIN Comparison: 09/20/2019. RESULT: Lines, tubes, and devices: None. Lungs and pleura: Subsegmental, somewhat focal left lower lung opacity likely lingular or left lower lobe. Cardiomediastinal silhouette: Stable. Other: No acute osseous or upper abdominal finding. IMPRESSION: Left lower lung opacity may reflect atelectasis or consolidation of infection. Recommend follow-up im aging after appropriate therapy to ensure resolution. Reviewed, dictated and finalized at location K. IMPRESSION: Left lower lung opacity may reflect atelectasis or consolidation of infection. Recommend follow-up imaging after appropriate therapy to ensure resolution.
[2022-08-22 13:54] VITALS: BP 149/93; PULSE 92; RESP 18; TEMP 36.5; O2SAT 97
--- NOTE | 2022-08-22 13:57 | ECG_ITS ---
Measurements Intervals [place] Rate: 93 P: 55 WV: 124 QRS: -16 QRSD: 86 T: 59 QT: 341 QTc: 426 Interpretive Statements SINUS RHYTHM BASELINE ARTIFACT NORMAL ECG COMPARED TO ECG 09/20/2019 11:52:07 NO SIGNIFICANT CHANGES Electronically Signed On 08-22-2022 16:01:01 CDT by Cliff Conley M.D.
[2022-08-22 14:16] LABS: Basophils Percent Auto 0.5 % (0.2-1.2); Eosinophils Absolute Auto 0.1 K/mm3 (0-0.3); Eosinophils Percent Auto 2.4 % (0-4.4); Hematocrit 44.1 % (42.0-52.0); Hemoglobin 15.3 g/dL (14.0-18.0); Immature Granulocyte Absolute 0.03 K/mm3 (0.00-0.031); Immature Granulocyte Percent A 0.5 % (0-0.5); Lymphocytes Absolute Auto 1.33 K/mm3 (0.9-3.2); Lymphocytes Percent Auto 22.4 % (18.3-44.2); Mean Corpuscular HGB Conc 34.7 g/dl (32-36); Mean Corpuscular Hemoglobin 31.7 pg (26-34); Mean Corpuscular Volume 91.3 fl (80-100); Mean Platelet Volume 10.5 fl (7.4-10.4); Monocytes Absolute Auto 0.9 K/mm3 (0.1-0.6); Monocytes Percent Auto 15.2 % (2.6-8.5); Neutrophils Absolute Auto 3.5 K/mm3 (1.3-6.7); Platelet Count Result 198 k/mm3 (150-375); Red Blood Count 4.83 M/mm3 (4.6-6.20); Red Cell Distribution Width 11.7 % (11.5-14.5); White Blood Count 5.9 K/mm3 (4.5-10.0)
--- NOTE | 2022-08-22 18:09 | PC.NURSE ---
Called out in the waiting room by senior mortgage underwriter. No answer.
== END 2022-08-22 18:09 | disposition left against medical advice (07) ==
PROVIDERS: Emergency Provider Emergency Medicine; PCP Family Medicine
DX: R07.9 Chest pain, unspecified (principal); Z53.21 Procedure and treatment not carried out due to patient leaving prior to being seen by health care provider
CPT/HCPCS: 36415; 71046; 85025; 93005; 99199

== ENCOUNTER 2024-01-10 08:22 | Emergency (ER) | payer BC, SELFPAY ==
--- NOTE | ~2024-01-10 | CT_ITS ---
EXAMINATION: CT facial bones wo con DATE: 01/10/2024 09:50 INDICATION: Head injury. TECHNIQUE: Computed tomography (CT) of the facial bones and maxillofacial region was performed withou t intravenous contrast. Automated exposure control and iterative reconstruction technique were employ ed. The dose-length product was 430.26 mGy-cm. COMPARISON: None. FINDINGS: There is left frontal scalp soft tissue swelling. There is mild mucosal thickening in the p aranasal sinuses. There is leftward deviation of the nasal septum. The mastoid air cells are normal. The orbits are normal. IMPRESSION: 1. No fracture. Reviewed, dictated and finalized at location E. ING AIDE IMPRESSION: 1. No fracture.
--- NOTE | ~2024-01-10 | CT_ITS ---
EXAMINATION: CT brain wo con DATE: 01/10/2024 09:49 INDICATION: Head injury. Loss of consciousness. TECHNIQUE: Computed tomography (CT) of the head was performed without intravenous contrast. The mA wa s adjusted according to patient size. Iterative reconstruction technique was employed. The dose-lengt h product was 605.33 mGy-cm. COMPARISON: None FINDINGS: There is no intracranial hemorrhage, acute infarction, or abnormal intracranial mass lesion . The ventricles are normal in size. The orbits are normal. There is mild mucosal thickening in the p aranasal sinuses. The mastoid air cells are normal. IMPRESSION: 1. Normal brain. Reviewed, dictated and finalized at location E. CAL CLERICAL ASSISTANT IMPRESSION: 1. Normal brain.
[2024-01-10 08:28] VITALS: BP 160/82; PULSE 77; RESP 20; TEMP 36.9; O2SAT 98
[2024-01-10 08:39] LABS: Glucose Point of Care 299 mg/dl (65-105)
--- NOTE | 2024-01-10 08:43 | PC.NURSE ---
Bedside glucose 299. Reports he does have retinopathy in right eye
--- NOTE | 2024-01-10 09:25 | ED.HEATRA ---
HPI - Head Injury General Chief complaint: Fall Stated complaint: fall on tuesday, eye injury Time Seen by Provider: 01/10/24 08:56 Source: patient Mode of arrival: ambulatory Limitations: no limitations History of Present Illness HPI Narrative: Sesar is a 53-year-old male patient presenting to the ER today with complaints of a left head injury. 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 Reports that he had loss of consciousness for 1-2 seconds. Has had increasing bruising around the left eye and forehead. States that he is having tunnel vision. Rates his head pain 6 to 7/10 currently. Has been taking ibuprofen for pain. He reports some nausea, photosensitivity, and difficulty waiting but no vomiting or dizziness. Has steady gait. He can recall recent events and past events prior to falling and hitting his head. Denies any neck pain. Related Data Allergies Allergy/AdvReac Type Severity Reaction Status Date / Time clindamycin Allergy Intermediate Swelling Verified 01/10/24 08:31 [facility] Allergy Mild Nausea Verified 01/10/24 08:31 Penicillins Allergy Unknown Vomiting Verified 01/10/24 08:31 Review of Systems Review of Systems: Pertinent positives per HPI. Patient denies any fever, chills, rash, dizziness, cough, runny nose, sore throat, shortness of breath, chest pain, palpitations, vomiting, diarrhea, constipation, abdominal pain, or any urinary issues. [facility] Past Medical History Medical History BMI 27.0-27.9,adult BMI 28.0-28.9,adult Diabetes mellitus Hyperlipidemia Left shoulder pain Neuropathy Tobacco abuse Type 2 diabetes mellitus with retinopathy Surgical History Surgical History History of appendectomy History of tonsillectomy Family History Family History Mother Diabetes mellitus Renal disease Hypertension Asthma Emphysema lung Grandparent Family history of malignant neoplasm of uterus Family history of malignant neoplasm of brain Sibling Asthma Acute myocardial infarction Daughter Asthma Other Chronic obstructive pulmonary disease uncle Father Family history of diabetes mellitus in first degree relative Hypertension Diabetes mellitus Acute myocardial infarction Social History Social History (Reviewed 01/10/24 @ 10:04 by RAY Miranda Smoking packs per day: 2 Smoking cigarettes per day: 40.0 Years smoked: 30 Smoking pack-years: 60.00 Smoking status: Current every day smoker Tobacco type: cigarettes Second hand tobacco smoke exposure: Yes Alcohol intake: current Drinks per week: 6 Alcohol use details: 2-3 times per year Substance use: never Substance use type: does not use Lack of Transportation: No Lack of Food: Never True Current Housing: I Have Housing Concerned About Future Housing: No Difficulty Paying Gas/Electric Bills: No Difficulty Paying for Meds: No Currently Unemployed: No Education: Associate Degree Difficulty w/ Childcare or Family Care: No Living arrangements: with family Occupation/Education: occupation 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 There is no relevant family history pertinent to the patient complaint. Exam Narrative: General: Well-developed, well nourished, in no apparent distress Head: Normocephalic, bruising noted to the left forehead and around the left eye, reporting headache 6 to 7/10 Eyes: Pupils equally round and reactive to light bilaterally, EOM intact, sclera and conjunctive clear,
[2024-01-10] MEDS: DACRIOSE EYE IRRIGATION 118 ML BOTTLE (10:47)
[2024-01-10] MEDS: TETRACAINE HCL 0.5% OPHTH SOLN 4 ML BTL 1 DROP (10:47)
[2024-01-10] MEDS: FLUORESCEIN SOD 1 MG/STRIP (10:47)
[2024-01-10 10:54] VITALS: BP 136/80; PULSE 68; RESP 16; TEMP 36.9; O2SAT 98
== END 2024-01-10 10:56 | disposition home or self-care (01) ==
PROVIDERS: Emergency Provider Nurse Practitioner Family; PCP Family Medicine
DX: S00.83XA Contusion of other part of head, initial encounter (principal); S06.0X1A Concussion with loss of consciousness of 30 minutes or less, initial encounter; E11.9 Type 2 diabetes mellitus without complications; E78.5 Hyperlipidemia, unspecified; F17.210 Nicotine dependence, cigarettes, uncomplicated; W19.XXXA Unspecified fall, initial encounter
CPT/HCPCS: 70450; 70486; 82948; 99284; A9270

== ENCOUNTER 2024-08-10 13:03 | Emergency (ER) | payer BC, SELFPAY ==
[2024-08-10] VITALS (9 sets, daily range): BP systolic 121–142; BP diastolic 60–98; PULSE 83–102; RESP 14–25; TEMP 36.6; O2SAT 92–100
--- NOTE | ~2024-08-10 | XR_ITS ---
Clinical Indication: Chest pain PA and lateral views of the chest: Comparison: 08/22/2022 Findings: The lungs are clear, without evidence of focal consolidation or pleural effusion. Cardiome diastinal silhouette is within normal limits. Bones and soft tissues are unremarkable. Impression: Normal chest. Reviewed, dictated and finalized at location . Impression: Normal chest.
--- NOTE | ~2024-08-10 | CT_ITS ---
EXAMINATION: CT chest abdomen pelvis wo con DATE: 08/10/2024 16:15 INDICATION: Chest pain. Abdominal pain. TECHNIQUE: Computed tomography (CT) of the chest, abdomen, and pelvis was performed without intraveno us contrast. Automated exposure control and iterative reconstruction technique were employed. The dos e-length product was 431.79 mGy-cm. COMPARISON: CT abdomen pelvis 11/17/2021 FINDINGS: CHEST CT: There is no pneumonia or pleural effusion. The heart size is normal. No pericardial effusion. There i s bilateral gynecomastia. There is mild thoracic spondylosis. ABDOMEN/PELVIS CT: The liver, gallbladder, spleen, pancreas, adrenal glands, and kidneys are normal. There is no urolith iasis. The bladder is distended. The prostate is mildly enlarged. There are no dilated loops of bowel . There are changes of appendectomy. There are no pathologically enlarged lymph nodes. There is no fr ee intraperitoneal fluid. There is a right inguinal hernia containing fat. There is mild lumbar spond ylosis. IMPRESSION: 1. Right inguinal hernia containing fat. Reviewed, dictated and finalized at location A.
--- NOTE | 2024-08-10 13:07 | ECG_ITS ---
Test Date: 2024-08-10 13:19:02 Measurements Intervals [place] Rate: 100 P: 73 VT: 161 QRS: -31 QRSD: 79 T: 55 QT: 340 QTc: 438 Interpretive Statements SINUS TACHYCARDIA POSSIBLE LEFT ATRIAL ENLARGEMENT [-0.1mV P WAVE IN V1/V2] MARKED LEFT AXIS DEVIATION [QRS AXIS < -30] INFERIOR MYOCARDIAL INFARCTION , OF INDETERMINATE AGE [40+ ms Q WAVE AND/OR ST/T ABNORMALITY IN II/aVF] No previous ECG available for comparison Electronically Signed On 08-10-2024 13:59:05 CDT by Jose Stern M.D.
[2024-08-10 13:29] LABS: Basophils Absolute Auto 0.1 K/mm3 (0.0-0.1); Basophils Percent Auto 0.6 % (0.2-1.2); Eosinophils Absolute Auto 0.3 K/mm3 (0-0.3); Eosinophils Percent Auto 2.4 % (0-4.4); Hematocrit 46.7 % (42.0-52.0); Hemoglobin 17.3 g/dL (14.0-18.0); Immature Granulocyte Absolute 0.03 K/mm3 (0.00-0.031); Immature Granulocyte Percent A 0.2 % (0-0.5); Lymphocytes Absolute Auto 3.04 K/mm3 (0.9-3.2); Mean Corpuscular Hemoglobin 32.8 pg (26-34); Mean Corpuscular Volume 88.4 fl (80-100); Mean Platelet Volume 10.4 fl (7.4-10.4); Monocytes Percent Auto 8.1 % (2.6-8.5); Neutrophils Absolute Auto 8.2 K/mm3 (1.3-6.7); Neutrophils Percent Auto 64.7 % (45.5-73.1); Platelet Count Result 260 k/mm3 (150-375); Red Blood Count 5.28 M/mm3 (4.6-6.20); Red Cell Distribution Width 11.2 % (11.5-14.5); White Blood Count 12.7 K/mm3 (4.5-10.0)
[2024-08-10 13:40] LABS: Alanine Aminotransferase 9 U/L (6-50); Albumin Level 4.1 g/dL (3.5-5.1); Alkaline Phosphatase 91 U/L (38-126); Anion Gap 6 mmol/L (4-12); Aspartate Amino Transferase 21 U/L (17-59); Bilirubin,Total 0.5 mg/dL (0.2-1.3); Blood Urea Nitrogen 16 mg/dL (9-20); Calcium 8.9 mg/dL (8.4-10.2); Carbon Dioxide 26 mmol/L (22-30); Chloride 99 mmol/L (98-107); Estimated CRCL calculation 100 ml/min; Estimated Glomerular Filt Rate > 60; Glucose 411 mg/dL (65-110); Lipase 606 U/L (23-300); Sodium 131 mmol/L (137-145)
[2024-08-10 13:42] LABS: INR 0.9; Partial Thromboplastin Time 24.8 Seconds (22.3-36.8); Prothrombin Time 12.8 Seconds (11.1-14.7)
[2024-08-10 13:52] LABS: Troponin I < 0.012 ng/mL (0.000-0.034)
--- NOTE | 2024-08-10 15:43 | ED.CHESTPAIN ---
HPI - Chest Pain General Chief Complaint: Chest Pain Stated Complaint: chest pain Time Seen by Provider: 08/10/24 15:30 History of Present Illness HPI narrative: Patient is a 54-year-old male who presents to the ER with upper abdominal pain that is worse in the left upper quadrant than the right upper quadrant. He has a history of pancreatitis and diabetes. His appendix was removed years ago. Patient has not been taking his long-acting insulin due to decreased insurance coverage. He endorses chest palpitations, difficulty sleeping, sweats, and weight loss. Patient denies any thyroid history. Pt endorses increased gas and intermittent chest pain, but denies nausea and vomiting. He denies other signs / symptoms of illness, or shortness of breath. Related Data Allergies Allergy/AdvReac Type Severity Reaction Status Date / Time clindamycin Allergy Intermediate Swelling Verified 08/10/24 15:02 dulaglutide [From [facility]] Allergy Mild Nausea Verified 08/10/24 15:02 Penicillins Allergy Unknown Vomiting Verified 08/10/24 15:02 Review of Systems Review of Systems: All systems reviewed & are unremarkable except as noted in HPI and below PMFSH Past Medical History Medical History BMI 27.0-27.9,adult BMI 28.0-28.9,adult Diabetes mellitus Hyperlipidemia Left shoulder pain Neuropathy Tobacco abuse Type 2 diabetes mellitus with retinopathy Surgical History Surgical History History of appendectomy History of tonsillectomy Family History Family History Mother Diabetes mellitus Renal disease Hypertension Asthma Emphysema lung Grandparent Family history of malignant neoplasm of uterus Family history of malignant neoplasm of brain Sibling Asthma Acute myocardial infarction Daughter Asthma Other Chronic obstructive pulmonary disease uncle Father Family history of diabetes mellitus in first degree relative Hypertension Diabetes mellitus Acute myocardial infarction Social History Social History Smoking packs per day: 2 Smoking cigarettes per day: 40.0 Years smoked: 30 Smoking pack-years: 60.00 Smoking status: Current every day smoker Tobacco type: cigarettes Second hand tobacco smoke exposure: Yes Alcohol intake: current Drinks per week: 6 Alcohol use details: 2-3 times per year Substance use: never Substance use type: does not use Lack of Transportation: No Lack of Food: Never True Current Housing: I Have Housing Concerned About Future Housing: No Difficulty Paying Gas/Electric Bills: No Difficulty Paying for Meds: No Currently Unemployed: No Education: Associate Degree Difficulty w/ Childcare or Family Care: No Living arrangements: with family Occupation/Education: occupation 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 HEAD: Normocephalic, atraumatic. NECK: Supple. No adenopathy, no masses. Thyroid mildly palpable with pt swallowing. RESPIRATORY: Airway patent, respirations nonlabored. Clear to auscultation bilaterally, no rales, rhonchi, wheezing. CARDIOVASCULAR: Regular rate and rhythm without murmurs, rubs, or gallops. Peripheral pulses 2+ and equal bilaterally. ABDOMINAL: Soft, tender in bilateral upper quadrants, nondistended, no hepatosplenomegaly. Normoactive BS. MUSCULOSKELETAL: Moves all extremities. Strength/ROM intact without gross deformities. SKIN: Warm, dry, normal color. No rashes. NEURO: A&O X3. Speech clear. Cranial nerves II-XII grossly intact. No ataxic movements.
[2024-08-10] MEDS: SODIUM CHLORIDE 0.9% IV 1,000 ML 999 ML IV CONT ×2 (16:20→20:00)
--- NOTE | 2024-08-10 16:40 | ECG_ITS ---
Test Date: 2024-08-10 17:21:43 Measurements Intervals [place] Rate: 81 P: 44 CT: 140 QRS: -28 QRSD: 90 T: 52 QT: 388 QTc: 451 Interpretive Statements SINUS RHYTHM BORDERLINE LEFT AXIS DEVIATION [QRS AXIS < -20] POSSIBLE RIGHT VENTRICULAR CONDUCTION DELAY [RSR (QR) IN V1/V2] Compared to ECG 08/10/2024 13:19:02 Sinus tachycardia no longer present t Electronically Signed On 08-11-2024 16:16:22 CDT by Roney Birch M.D.
[2024-08-10 17:10] LABS: Ethanol < 10 mg/dL (<10)
[2024-08-10 17:12] LABS: Beta-Hydroxybutyrate/Acetoacetate 0.13 mmol/L (0.02-0.27)
[2024-08-10 17:24] LABS: Troponin I < 0.012 ng/mL (0.000-0.034)
[2024-08-10 17:48] LABS: Add Urine Microscopic? YES; Appearance Urine Clear (Clear); Bacteria Urine None Seen /hpf; Bilirubin Urine Negative (Negative); Blood Urine Negative (Negative); Color Urine Yellow (Yellow); Glucose Urine UA 3+ mg/dL (Negative); Ketones Urine Trace mg/dL (Negative); Leukocyte Esterase Ur Negative LEU/UL (Negative); Nitrate Urine Negative (Negative); Non Pathogenic Casts 0-2; Protein Urine 1+ mg/dL (Negative); RBC Urine 0-2 /hpf (0-2); Specific Grav Ur 1.019 (1.001-1.035); Squamous Epithelial Cell Urine None Seen /hpf (Few); Urobilinogen Urine 0.2 mg/dL (<2.0); WBC Urine 0-5 /hpf (0-3)
[2024-08-10 17:56] LABS: Thyroid Stimulating Hormone Reflex 0.217 uIU/mL (0.465-4.68)
[2024-08-10 18:15] LABS: Lactic Acid Reflex 0.9 mmol/L (0.7-2.0)
[2024-08-10 18:18] LABS: Hemoglobin A1C 13.9 % (<5.7)
[2024-08-10 19:15] LABS: Free T4 Free Thyroxine Reflex 1.26 ng/dL (0.78-2.19)
[2024-08-10 19:56] LABS: Total Triiodothyronine (T3) 0.56 NG/ML (0.97-1.69)
--- NOTE | 2024-08-10 20:00 | PC.NURSE ---
Blood sugar is 306 mg/dL. EDP made aware and discontinues insulin order.
[2024-08-10 21:18] LABS: Glucose Point of Care 277 mg/dl (65-105)
[2024-08-10 21:18] LABS: Glucose Point of Care 306 mg/dl (65-105)
== END 2024-08-10 21:35 | disposition home or self-care (01) ==
PROVIDERS: Preventive Medicine Aerospace Medicine; Emergency Provider Registered Nurse; PCP Family Medicine
DX: E11.65 Type 2 diabetes mellitus with hyperglycemia (principal); E05.90 Thyrotoxicosis, unspecified without thyrotoxic crisis or storm; R07.89 Other chest pain; T38.3X6A Underdosing of insulin and oral hypoglycemic [antidiabetic] drugs, initial encounter; Z91.141 Patient's other noncompliance with medication regimen due to financial hardship; E11.319 Type 2 diabetes mellitus with unspecified diabetic retinopathy without macular edema; E11.40 Type 2 diabetes mellitus with diabetic neuropathy, unspecified; E78.5 Hyperlipidemia, unspecified; F17.210 Nicotine dependence, cigarettes, uncomplicated; K40.90 Unilateral inguinal hernia, without obstruction or gangrene, not specified as recurrent; Z79.84 Long term (current) use of oral hypoglycemic drugs; Z79.899 Other long term (current) drug therapy; Z79.4 Long term (current) use of insulin; R94.31 Abnormal electrocardiogram [ECG] [EKG]; R00.0 Tachycardia, unspecified
CPT/HCPCS: 36415; 71046; 71250; 74176; 80053; 81001; 82010; 82077; 82948; 83036; 83605; 83690; 84439; 84443; 84480; 84484; 85025; 85610; 85730; 93005; 96360; 96361; 99284; J1815; J7030

== ENCOUNTER 2024-12-28 10:48 | Emergency (ER) | payer BC, SELFPAY ==
--- NOTE | ~2024-12-28 | CT_ITS ---
EXAMINATION:CT diagnostic chest wo con DATE: 12/28/2024 14:38 INDICATION: Shortness of breath and cough. Left chest pain. TECHNIQUE: Computed tomography (CT) of the chest was performed without intravenous contrast. Automate d exposure control and iterative reconstruction technique were employed. The dose-length product (DLP ) was 153.38 mGy-cm. COMPARISON: Chest CT 08/10/2024 FINDINGS: There are airspace and groundglass opacities with cavitation in left lower lobe. There are centrilobular nodules in left lower lobe. These findings are consistent with pneumonia. There is a tr murali left pleural effusion. The heart size is normal. There is a trace pericardial effusion. There is mild left hilar and mediastinal lymphadenopathy, likely reactive. There is mild thoracic spondylosis. IMPRESSION: 1. Left lower lobe pneumonia with a small area of cavitation. 2. Mild left hilar and mediastinal lymphadenopathy, likely reactive. Reviewed, dictated and finalized at location A. MACHINE OPERATOR
[2024-12-28 10:52] VITALS: BP 166/81; PULSE 102; RESP 16; TEMP 36.8; O2SAT 97
--- NOTE | 2024-12-28 10:56 | ECG_ITS ---
Test Date: 2024-12-28 11:09:53 Measurements Intervals [place] Rate: 102 P: 64 SD: 146 QRS: -10 QRSD: 82 T: 53 QT: 335 QTc: 437 Interpretive Statements SINUS TACHYCARDIA BASELINE ARTIFACT- I, II, AVR, V3 BORDERLINE ECG Compared to ECG 08/10/2024 17:21:43 HEART RATE HAS INCREASED Electronically Signed On 12-28-2024 11:17:52 HOSPITALITY AIDE by José Hutchinson D.O.
--- OUTSIDE RECORDS SUMMARY | 2024-12-28 11:22 | XMS_ITS | Clinical Summary ---
Author Organization [facility] [address] Address [address] [place] [address] Care Team Providers Care Shactor Name Role Phone Jean-Pierre Saenz MD Primary Care Provider [phone] Allergies Active Allergy Reactions Criticality Noted Date Comments Iodinated Contrast Media Anaphylaxis High 10/02/2019 Social History Tobacco Use Types Packs/Day Years Used Date Smoking Tobacco: Never Assessed Personal Safety Answer Date Recorded Getting School Help Needed Not on file 01/20 Sex and Gender Information Value Date Recorded Sex Assigned at Not on file 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
--- OUTSIDE RECORDS SUMMARY | 2024-12-28 11:22 | XMS_ITS | Clinical Summary ---
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 Gender Identity Not on file Sexual Orientation Not on file Plan of Treatment Health Maintenance Due Date Last Done Comments Hepatitis C Virus (HCV) Screening 1970 TdaP Immunization 1970 Hepatitis B Immunization (1 of 3 - 19+ 3-dose series) 1989 Colonoscopy 2015 Colorectal Cancer Screening 2015 Cologuard 2020 Immunochemical Fecal Occult Blood 2020 Pneumococcal Immunization (5 0+ years) (1 of 1 - PCV) 2020 Zoster Immunization (1 of 2) 2020 Influenza Immunization (#1) 2024 11/21/2020 SARS-COV-2 Immunization ( - 2023-25 season) 2024 Respiratory Syncytial Virus (RSV) Immunization (Adult) (1 - 1-dose 75+ series) 2045 Meningococcal Immunization (ACWY) Aged Out No longer eligible based on patient's age to complete this topic Pneumococcal Immunization Combined Aged Out No longer eligible based on patient's age to complete this topic Rotavirus Immunization Aged Out No lo nger eligible based on patient's age to complete this topic
--- OUTSIDE RECORDS SUMMARY | 2024-12-28 11:22 | XMS_ITS | Referral Summary ---
Author Organization [facility] [address] Address [address] [place] [address] Care Team Providers Care Rehab Office Coordinator Name Role Phone Jean-Pierre Saenz MD Primary Care Provider [phone] Allergies Active Allergy Reactions Criticality Noted Date Comments Iodinated Contrast Media Anaphylaxis High 10/02/2019 Social History Tobacco Use Types Packs/Day Years Used Date Smoking Tobacco: Never Assessed Personal Safety Answer Date Recorded Getting School Help Needed Not on file 01/20 Sex and Gender Information Value Date Recorded Sex Assigned at Not on file 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
--- OUTSIDE RECORDS SUMMARY | 2024-12-28 11:22 | XMS_ITS | Clinical Summary ---
Author Organization [facility] Address [address] [place] [id number] Care Team Providers Care Senior Partner Name Role Phone Jean-Pierre Saenz MD Primary Care Provider [phone] Allergies Active Allergy Reactions Criticality Noted Date Comments Penicillins Vomiting 04/08/2019 Social History Tobacco Use Types Packs/Day Years Used Date Smoking Tobacco: Never Assessed Sex and Gender Information Value Date Recorded Sex Assigned at Not on file Legal Sex Male 9:37 AM CDT Gender Identity Not on file Sexual Orientation Not on file Last Filed Vital Signs Vital Sign Reading Time Taken Comments Blood Pressure 111/75 04/08/2019 2:31 PM CDT Pulse 75 04/08/2019 2:31 PM CDT Temperature 36.7 C (98 F) 04/08/2019 1:15 PM CDT Respiratory Rate 20 04/08/2019 2:31 PM CDT Oxygen Saturation 94% 04/08/2019 2:31 PM CDT Inhaled Oxygen Concentration - - Weight 78 kg (172 lb) 04/08/2019 9:43 AM CDT Height 165.1 cm (5' 5 ) 04/08/2019 9:43 AM CDT Body Mass Index 28.62 04/08/2019 9:43 AM CDT Plan of Treatment Health Maintenance Due Date Last Done Comments Colorectal Cancer Screening Colonoscopy (10 Years) 1970 Annual Physical 1973 Hepatitis C 1988 DTaP, Tdap and Td Vaccines ( 1 - Tdap) 1989 Hepatitis B Vaccines (1 of 3 - 19+ 3-dose series) 1989 Zoster Vaccines (1 of 2) 2020 COVID-19 Vaccine ( - 2023-2 5 season) 2024 Influenza Adult (#1) 2024 Meningococcal B Vaccine Aged Out No l onger eligible based on patient's age to complete this topic Meningococcal Vaccine Aged Out No kiki carmen eligible based on patient's age to complete this topic Pneumococcal Vaccine: Pediat rics (0 to 5 Years) and At-Risk Patients (6 to 64 Years) Aged Out No longer eligible b ased on patient's age to complete this topic RSV Immunizations Under 20 Months Aged Out No longer eligible based on patient's age to complete this topic Insurance [address] [place], [place] [id number] [place] [address] Care Teams Senior Partner Relationship Specialty Start Date End Date Jean-Pierre Saenz MD [address] [place] [address] PCP - General FAMILY PRACTICE 04/08/19
--- NOTE | 2024-12-28 13:41 | ED_ITS ---
HPI - SOB/Dyspnea General Chief Complaint: Shortness of Breath/Dyspnea <Madison Garcia PA-C - Last Filed: 12/28/24 13:49> Stated Complaint: SOB, cough x1 month <Madison Garcia PA-C - Last Filed: 12/28/24 13:49> Time Seen by Provider: 12/28/24 13:41 <Madison Garcia PA-C - Last Filed: 12/28/24 13:49> Focused HPI: Patient is a 54-year-old male who presents the ED with report of left-sided chest pain. Patient reports he has had a persistent cough for the last 1 month. Is bringing up phlegm with the cough, states it smells like sewage. Has had intermittent fevers. Reports on Tuesday, he began having spasming in his L sided chest. Has had persistent pain since then. Reports difficulty laying on left side, taking deep breaths, has been feeling increasingly short of breath. Has been taking ibuprofen and dayquil w/o improvement. GENERAL: Appears older than stated age. Well-nourished, and in no acute distress. HEAD: Normocephalic, atraumatic. CHEST: Frequent coughing on exam. Focal rhonchi in left lower lung zone. No wheezing. HEART: Regular rate and rhythm.? NEURO: ?Alert and oriented x3. Patient screened in triage and initial orders placed.? ?Additional care and disposition to be based upon?diagnostic testing and treatment. <Madison Garcia PA-C - Last Filed: 12/28/24 13:49> Source: patient <Madison Garcia PA-C - Last Filed: 12/28/24 13:49> Mode of arrival: ambulatory <ALEKSANDRA Mora Last Filed: 12/28/24 13:49> Limitations: no limitations <ALEKSANDRA Mora Last Filed: 12/28/24 13:49> History of Present Illness HPI Narrative: As reviewed above in HPI. Patient has not sought medical attention over last month and has not seen his PCP or urgent care for this. He had a scheduled PCP appointment this morning but came to the ER. <Arpit Wallace MD - Last Filed: 12/28/24 19:00> Related Data Allergies/Adverse Reactions: Allergies Allergy/AdvReac Type Severity Reaction Status Date / Time clindamycin Allergy Intermediate Swelling Verified 12/28/24 16:30 dulaglutide (From Trulicity) Allergy Mild Nausea Verified 12/28/24 16:30 Penicillins Allergy Unknown Vomiting Verified 12/28/24 16:30 CT contrast Allergy Severe Anaphylaxis Uncoded 12/28/24 16:30 <Madison Garcia PA-C - Last Filed: 12/28/24 13:49> Review of Systems 2 Review of Systems: As reviewed above in HPI <Arpit Wallace MD - Last Filed: 12/28/24 19:00> [facility] Past Medical History Medical History: Medical History Type 2 diabetes mellitus with retinopathy Left shoulder pain Neuropathy Tobacco abuse Hyperlipidemia <Madison Garcia PA-C - Last Filed: 12/28/24 13:49> Surgical History Surgical History: Surgical History History of tonsillectomy History of appendectomy <Madison Garcia PA-C - Last Filed: 12/28/24 13:49> Family History Family History: Family History Mother Diabetes mellitus Renal disease Hypertension Asthma Emphysema lung Grandparent Family history of malignant neoplasm of uterus Family history of malignant neoplasm of brain Sibling Asthma Acute myocardial infarction Daughter Asthma Other Chronic obstructive pulmonary disease uncle Father Family history of diabetes mellitus in first degree relative Hypertension Diabetes mellitus Acute myocardial infarction <ALEKSANDRA Mora Last Filed: 12/28/24 13:49> Social History Social History: Social History Smoking packs per day: 2 Smoking cigarettes per day: 40.0 Years smoked: 30 Smoking pack-years: 60.00 Smoking status: Current every day smoker Tobacco type: cigarettes Second hand tobacco smoke exposure: Yes Alcohol intake: current Drinks per week: 6 Alcohol use details: 2-3 times per year Substance use: never Substance use type: does not use Lack of Transportation: No Lack of Food: Never True Current Housing: I Have Housing Concerned About Future Housing: No Difficulty Paying Gas/Electric Bills: No Difficulty Paying for Meds: No Currently Unemployed: No Education: Associate Degree Difficulty w/ Childcare or Family Care: No Living arrangements: with family Occupation/Education: occupation Additional occupation/education comments: IT for [employer] Gender identity (if verbalized by the patient): Male Spiritual care concerns: No Agree to blood products: Yes <Madison Garcia PA-C - Last Filed: 12/28/24 13:49> Exam 2 Narrative: GENERAL: Appears older than stated age but overall not in any acute distress, not ill appearing HEAD: [Normocephalic, atraumatic.] EYES: [PERRLA and EOMI.] ENT: Nares clear, no rhinorrhea or epistaxis. Mucous membranes moist. NECK: Supple. CHEST: Coarse breath sounds in the left side base without any wheezing. No prolonged expiratory phase. Clear breath sounds throughout the rest of the lung mckeon. No tachypnea. HEART: [Regular rate and rhythm]. No murmur heard. [Normal peripheral pulses.] ABDOMEN: [Soft, nondistended], [nontender], [No rigidity or guarding] EXTREMITIES: Normal range of motion. [No edema.] SKIN: Warm, dry, no rash. NEURO: [No focal deficits]. Alert and oriented [x3.] PSYCH: [Normal mood and affect.] <Arpit Wallace MD - Last Filed: 12/28/24 19:00> Course Vital Signs Vital signs: Vital Signs Temperature 36.8 C 12/28/24 10:52 Pulse Rate 102 H 12/28/24 10:52 Respiratory Rate 16 12/28/24 10:52 Blood Pressure 166/81 H 12/28/24 10:52 Pulse Oximetry 97 12/28/24 10:52 Oxygen Delivery Room Air 12/28/24 10:52 Temperature 36.8 C 12/28/24 10:52 Pulse Rate 102 H 12/28/24 10:52 Respiratory Rate 16 12/28/24 10:52 Blood Pressure 166/81 H 12/28/24 10:52 Pulse Oximetry 97 12/28/24 10:52 Oxygen Delivery Room Air 12/28/24 10:52 <Madison Garcia PA-C - Last Filed: 12/28/24 13:49> Vital Signs Temperature 36.8 C 12/28/24 10:52 Pulse Rate 102 H 12/28/24 10:52 Respiratory Rate 16 12/28/24 10:52 Blood Pressure 166/81 H 12/28/24 10:52 Pulse Oximetry 97 12/28/24 10:52 Oxygen Delivery Room Air 12/28/24 10:52 Temperature 36.8 C 12/28/24 10:52 Pulse Rate 102 H 12/28/24 10:52 Respiratory Rate 16 12/28/24 10:52 Blood Pressure 166/81 H 12/28/24 10:52 Pulse Oximetry 97 12/28/24 10:52 Oxygen Delivery Room Air 12/28/24 10:52 <Arpit Wallace MD - Last Filed: 12/28/24 19:00> MDM - SOB/Dyspnea MDM Narrative Medical decision making narrative: MSE by RADHA in triage. <Madison Garcia PA-C - Last Filed: 12/28/24 13:49> MSE by RADHA in triage. 54-year-old male presenting with upper respiratory and lower respiratory tract symptoms for about 1 month associated with some shortness of breath and newly developed left-sided chest pain. Reports chest pain is pleuritic in nature. Cough is productive of foul-smelling sputum. He endorses active smoking but denies any drinking. No vomiting. Was otherwise in his normal state of health. Symptoms ongoing for last month. His a history of diabetes and hypertension for which he takes medication. He is otherwise well- appearing and not in any acute distress. Slightly tachycardic but no tachypnea or hypoxia. No fever here in the ED. Coarse breath sounds left-sided combined with his history raises suspicion for a pneumonia verses viral syndrome versus flu-like illness. Low suspicion ACS although he does have risk factors. Cardiac workup was ordered chest CT, EKG, CBC, CMP, troponin. Patient has anaphylaxis contrast allergy and noncontrast was used. Workup reveals a leukocytosis of 16.3. Anemia of 11.1 which appears new compared to previous months labs although he has no evidence of bleeding, no dark tarry stools or any other concern for blood loss. Could be secondary to active infection such as the pneumonia on his CT. Normal platelet count. Coagulation studies within normal limits, normal renal function. Slightly hyperglycemic at 264. Lactic acid pending, negative troponin. Normal electrolytes otherwise. Normal LFTs. Negative viral panel. EKG shows sinus tachycardia but no signs of acute ischemia. No signs of ectopy. CT scan was independently reviewed and shows a left-sided lower lobe pneumonia. Small area of cavitation trace left-sided pleural effusion. Findings consistent with pneumonia per radiology interpretation. Mild left hilar and mediastinal lymphadenopathy likely reactive to the above infection. Patient was started on IV antibiotics including ceftriaxone and azithromycin. Given a L of fluid. Blood cultures and lactic acid were drawn. Will re-evaluate and decide on admission versus discharge although patient would prefer to go home and does not want to be admitted. Patient's lactic acid came back negative. Patient was re-evaluated and felt improved with antibiotics and fluids. He would like to go home. We had shared decision-making at the bedside regarding admission given his risk factors and pneumonia with an elevated white count. Patient is hemodynamically stable, has no oxygen requirements and has no work of breathing. Patient expressed desire for discharge and will be sent home with antibiotic coverage including level floxacillin given his penicillin allergy. Patient was given very strict return precautions and outpatient follow-up instructions. He was told to call his PCP for repeat evaluation and ER follow-up visit. Patient verbalized understanding the instructions and safely discharged at this time. <Arpit Wlalace MD - Last Filed: 12/28/24 19:00> Medical Records Attestation: I reviewed the patient's medical records. <Arpit Wallace MD - Last Filed: 12/28/24 19:00> Lab Data Attestation: I reviewed the patient's lab results. <Arpit Wallace MD - Last Filed: 12/28/24 19:00> Result diagrams: 12/28/24 14:52 12/28/24 14:52 <Madison Garcia PA-C - Last Filed: 12/28/24 13:49> Labs: Lab Results 12/28/24 12/28/24 Range/Units 14:52 16:41 WBC 16.3 H (4.5-10.0) K/mm3 RBC 3.49 L (4.6-6.20) M/mm3 Hgb 11.1 L D (14.0-18.0) g/dL Hct 32.0 L (42.0-52.0) % MCV 91.7 (80-100) fl MCH 31.8 (26-34) pg MCHC 34.7 (32-36) g/dl RDW 11.7 (11.5-14.5) % Plt Count 330 (150-375) k/mm3 MPV 10.2 (7.4-10.4) fl Immature Gran % (Auto) 0.6 H (0-0.5) % Neut % (Auto) 70.8 (45.5-73.1) % Lymph % (Auto) 17.7 L (18.3-44.2) % [place] % (Auto) 8.9 H (2.6-8.5) % Eos % (Auto) 1.5 (0-4.4) % Baso % (Auto) 0.5 (0.2-1.2) % Lymph # (Auto) 2.89 (0.9-3.2) K/mm3 [place] # (Auto) 1.5 H (0.1-0.6) K/mm3 Eos # (Auto) 0.3 (0-0.3) K/mm3 Baso # (Auto) 0.1 (0.0-0.1) K/mm3 Abs Immat Gran (auto) 0.09 H (0.00-0.031) K/mm3 Absolute Neuts (auto) 11.6 H (1.3-6.7) K/mm3 Absolute Nucleated RBC 0.000 (0.0-0.012) K/mm3 Nucleated RBC % 0.0 (0.0-0.2) % PT 13.6 (11.1-14.7) Seconds INR 1.0 APTT 33.3 (22.3-36.8) Seconds Sodium 136 L (137-145) mmol/L Potassium 3.6 (3.4-5.0) mmol/L Chloride 101 (98-107) mmol/L Carbon Dioxide 28 (22-30) mmol/L Anion Gap 7 (4-12) mmol/L BUN 13 (9-20) mg/dL Creatinine 0.48 L (0.7-1.3) mg/dL Estim Creat Clear Calc 127 ml/min Estimated GFR > 60 (59 - ) Glucose 264 H (65-110) mg/dL Lactic Acid 0.9 (0.7-2.0) mmol/L Calcium 8.5 (8.4-10.2) mg/dL Total Bilirubin 0.6 (0.2-1.3) mg/dL AST 20 (17-59) U/L ALT 10 (6-50) U/L Alkaline Phosphatase 66 (38-126) U/L Troponin I < 0.012 (0.000-0.034) ng/mL Total Protein 7.0 (6.3-8.2) g/dL Albumin 3.2 L (3.5-5.1) g/dL Influenza A (RT-PCR) Negative (Negative) Influenza B (RT-PCR) Negative (Negative) RSV (RT-PCR) Negative (Negative) SARS-CoV-2 RNA (RT-PCR) Negative (Negative) <Madison Garcia PA-C - Last Filed: 12/28/24 13:49> Lab Results 12/28/24 12/28/24 Range/Units 14:52 16:41 WBC 16.3 H (4.5-10.0) K/mm3 RBC 3.49 L (4.6-6.20) M/mm3 Hgb 11.1 L D (14.0-18.0) g/dL Hct 32.0 L (42.0-52.0) % MCV 91.7 (80-100) fl MCH 31.8 (26-34) pg MCHC 34.7 (32-36) g/dl RDW 11.7 (11.5-14.5) % Plt Count 330 (150-375) k/mm3 MPV 10.2 (7.4-10.4) fl Immature Gran % (Auto) 0.6 H (0-0.5) % Neut % (Auto) 70.8 (45.5-73.1) % Lymph % (Auto) 17.7 L (18.3-44.2) % [place] % (Auto) 8.9 H (2.6-8.5) % Eos % (Auto) 1.5 (0-4.4) % Baso % (Auto) 0.5 (0.2-1.2) % Lymph # (Auto) 2.89 (0.9-3.2) K/mm3 [place] # (Auto) 1.5 H (0.1-0.6) K/mm3 Eos # (Auto) 0.3 (0-0.3) K/mm3 Baso # (Auto) 0.1 (0.0-0.1) K/mm3 Abs Immat Gran (auto) 0.09 H (0.00-0.031) K/mm3 Absolute Neuts (auto) 11.6 H (1.3-6.7) K/mm3 Absolute Nucleated RBC 0.000 (0.0-0.012) K/mm3 Nucleated RBC % 0.0 (0.0-0.2) % PT 13.6 (11.1-14.7) Seconds INR 1.0 APTT 33.3 (22.3-36.8) Seconds Sodium 136 L (137-145) mmol/L Potassium 3.6 (3.4-5.0) mmol/L Chloride 101 (98-107) mmol/L Carbon Dioxide 28 (22-30) mmol/L Anion Gap 7 (4-12) mmol/L BUN 13 (9-20) mg/dL Creatinine 0.48 L (0.7-1.3) mg/dL Estim Creat Clear Calc 127 ml/min Estimated GFR > 60 (59 - ) Glucose 264 H (65-110) mg/dL Lactic Acid 0.9 (0.7-2.0) mmol/L Calcium 8.5 (8.4-10.2) mg/dL Total Bilirubin 0.6 (0.2-1.3) mg/dL AST 20 (17-59) U/L ALT 10 (6-50) U/L Alkaline Phosphatase 66 (38-126) U/L Troponin I < 0.012 (0.000-0.034) ng/mL Total Protein 7.0 (6.3-8.2) g/dL Albumin 3.2 L (3.5-5.1) g/dL Influenza A (RT-PCR) Negative (Negative) Influenza B (RT-PCR) Negative (Negative) RSV (RT-PCR) Negative (Negative) SARS-CoV-2 RNA (RT-PCR) Negative (Negative) <Arpit Wallace MD - Last Filed: 12/28/24 19:00> Imaging Data Attestation: I personally reviewed and interpreted this imaging study as follows: < Arpit Wallace MD - Last Filed: 12/28/24 19:00> My impression: Impressions Chest CT 12/28/24 15:03 IMPRESSION: 1. Left lower lobe pneumonia with a small area of cavitation. 2. Mild left hilar and mediastinal lymphadenopathy, likely reactive. <Arpit Wallace MD - Last Filed: 12/28/24 19:00> ECG Data EKG #1: Attestation: I personally reviewed and interpreted this ECG as follows: < Arpit Wallace MD - Last Filed: 12/28/24 19:00> ECG completion date: 12/28/24 <Arpit Wallace MD - Last Filed: 12/28/24 19:00> ECG completion time: 11:09 <Arpit Wallace MD - Last Filed: 12/28/24 19:00> Prior ECG tracings: available for review <Arpit Wallace MD - Last Filed: 12/28/24 19:00> Interpretation: Sinus tachycardia, leftward axis deviation, no ST segment elevations, depressions or inversions. Regular rhythm. QTC 437, QRS 82, W[place] interval 146. No significant interval change compared to prior EKG. Overall interpretation sinus tachycardia. <Arpit Wallace MD - Last Filed: 12/28/24 19:00> Discharge Plan Discharge Clinical Impression: Community acquired pneumonia of left lung, Elevated WBC count, Hyperglycemia due to diabetes mellitus, Chest pain <Madison Garcia PA-C - Last Filed: 12/28/24 13:49> Patient Disposition: Home, Self-Care <Madison Garcia PA-C - Last Filed: 12/28/24 13:49> Condition: Stable <Madison Garcia PA-C - Last Filed: 12/28/24 13:49> Instructions: Antibiotic Form, Community Acquired Pneumonia (ED) <Madison Garcia PA-C - Last Filed: 12/28/24 13:49> Additional Instructions: We will send you home with levofloxacin for the next 5 days to treat your pneumonia. Call your primary care provider and have a close outpatient follow-up appointment in next several days. Return with any new or worsening symptoms at any time. We will send you home with medications for pain control as well as cough suppression. <Madison Garcia PA-C - Last Filed: 12/28/24 13:49> Patient Language: Indonesian <Madison Garcia PA-C - Last Filed: 12/28/24 13:49> Prescriptions: New levofloxacin 750 mg tablet 750 mg PO DAILY 5 Days Qty: 5 0RF benzonatate 200 mg capsule 200 mg PO TID PRN (Reason: cough) Qty: 20 0RF ketorolac 10 mg tablet 10 mg PO Q8H PRN (Reason: pain) 5 Days Qty: 20 0RF Rx Instructions: maximum total duration of 5 days from all oral, intranasal, or parenteral formulations lidocaine 5 % adhesive patch,medicated 1 patch topical DAILY Qty: 15 0RF Rx Instructions: leave on most painful area for up to 12 hrs No Action (DME) Dexcom G7 Sensor Device See Rx Instructions .Route Qty: 6 3RF Rx Instructions: As directed atorvastatin 20 mg tablet 20 mg PO DAILY Qty: 90 3RF lisinopril 10 mg tablet 10 mg PO DAILY Qty: 90 3RF empagliflozin 25 mg tablet 25 mg PO QAM Qty: 90 3RF (DME) pen needle, diabetic [BD Ultra-Fine Micro Pen Needle] 32 gauge x 1/4 needle See Rx Instructions .ROUTE .MEDSUPPLY Qty: 150 5RF Rx Instructions: five times daily insulin aspart U-100 [Novolog FlexPen U-100 Insulin] 100 unit/mL (3 mL) insulin pen 1 sliding scale dose subcut USEASDIRECTD Qty: 15 5RF Rx Instructions: Per SSI subcut four times daily; Maximum daily dose of 80 units insulin degludec [Tresiba FlexTouch U-100] 100 unit/mL (3 mL) insulin pen 35 unit subcut QAM Qty: 15 5RF <Madison Garcia PA-C - Last Filed: 12/28/24 13:49> Follow-up/Referrals: Jean-Pierre Saenz MD [Primary Care Provider] - <Madison Garcia PA-C - Last Filed: 12/28/24 13:49> Time of Disposition: 18:08 <Madison Garcia PA-C - Last Filed: 12/28/24 13:49> 18:08 <Arpit Wallace MD - Last Filed: 12/28/24 19:00> Quality HEART score for chest pain patients History: slightly suspicious <Arpit Wallace MD - Last Filed: 12/28/24 19:00> ECG: normal <Arpit Wallace MD - Last Filed: 12/28/24 19:00> Age: > 45 and < 65 years <Arpit Wallace MD - Last Filed: 12/28/24 19:00> Risk factors: 1 or 2 risk factors <Arpit Wallace MD - Last Filed: 12/28/24 19:00> Troponin: < or = to 1x normal limit <Arpit Wallace MD - Last Filed: 12/28/24 19:00> Heart score: 2 <Arpit Wallace MD - Last Filed: 12/28/24 19:00>
--- OUTSIDE RECORDS SUMMARY | 2024-12-28 13:57 | XMS_ITS | Clinical Summary ---
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
--- OUTSIDE RECORDS SUMMARY | 2024-12-28 13:57 | XMS_ITS | Referral Summary ---
Author Organization [facility] [address] Address [address] [place] [address] Care Team Providers Care Metal Sprayer Name Role Phone Jean-Pierre Saenz MD Primary Care Provider [phone] Allergies Active Allergy Reactions Criticality Noted Date Comments Iodinated Contrast Media Anaphylaxis High 10/02/2019 Social History Tobacco Use Types Packs/Day Years Used Date Smoking Tobacco: Never Assessed Personal Safety Answer Date Recorded Getting School Help Needed Not on file 01/20 Sex and Gender Information Value Date Recorded Sex Assigned at Not on file Legal Sex Male 5:27 PM RN CARDIAC CATH Gender Identity Not on file Sexual Orientation Not on file Plan of Treatment Not on file Insurance [facility] ACCESS CHOICE Care Teams Metal Sprayer Relationship Specialty Start Date End Date Jean-Pierre Saenz MD PCP - General Family Medicine 09/20/19
--- OUTSIDE RECORDS SUMMARY | 2024-12-28 13:57 | XMS_ITS | Clinical Summary ---
Author Organization [facility] Address [address] [place] [address] Care Team Providers Care [employer] Name Role Phone Jean-Pierre Saenz MD Primary Care Provider [phone] Allergies Active Allergy Reactions Criticality Noted Date [...] age to complete this topic Insurance [address] [place], [place] [id number] [place] [address] Care Teams [employer] Relationship Specialty Start Date End Date Jean-Pierre Saenz MD [address] [place] [address] PCP - General FAMILY PRACTICE 04/08/19
--- OUTSIDE RECORDS SUMMARY | 2024-12-28 13:57 | XMS_ITS | Clinical Summary ---
Author [place] [facility] [place] [address] Address [address] [place] [address] Care Team Providers Care Director Of Cath Lab Name Role Phone Jean-Pierre Saenz MD Primary Care Provider [phone] Allergies Active Allergy Reactions Criticality Noted Date Comments Iodinated Contrast Media Anaphylaxis High 10/02/2019 Social History Tobacco Use Types Packs/Day Years Used Date Smoking Tobacco: Never Assessed Personal Safety Answer Date Recorded Getting School Help Needed Not on file 01/20 Sex and Gender Information Value Date Recorded Sex Assigned at Not on file Legal Sex Male 5:27 PM [employer]LE[employer] OPER[employer] Gender Identity Not on file Sexual Orientation Not on file Plan of Treatment Not on file Insurance [facility] ACCESS CHOICE Care Teams Director Of Cath Lab Relationship Specialty Start Date End Date Jean-Pierre Saenz MD PCP - General Family Medicine 09/20/19
[2024-12-28 14:59] LABS: Basophils Absolute Auto 0.1 K/mm3 (0.0-0.1); Basophils Percent Auto 0.5 % (0.2-1.2); Eosinophils Absolute Auto 0.3 K/mm3 (0-0.3); Eosinophils Percent Auto 1.5 % (0-4.4); Hemoglobin 11.1 g/dL (14.0-18.0); Immature Granulocyte Absolute 0.09 K/mm3 (0.00-0.031); Immature Granulocyte Percent A 0.6 % (0-0.5); Lymphocytes Absolute Auto 2.89 K/mm3 (0.9-3.2); Lymphocytes Percent Auto 17.7 % (18.3-44.2); Mean Corpuscular HGB Conc 34.7 g/dl (32-36); Mean Corpuscular Hemoglobin 31.8 pg (26-34); Mean Corpuscular Volume 91.7 fl (80-100); Mean Platelet Volume 10.2 fl (7.4-10.4); Monocytes Absolute Auto 1.5 K/mm3 (0.1-0.6); Monocytes Percent Auto 8.9 % (2.6-8.5); Neutrophils Absolute Auto 11.6 K/mm3 (1.3-6.7); Neutrophils Percent Auto 70.8 % (45.5-73.1); Platelet Count Result 330 k/mm3 (150-375); Red Blood Count 3.49 M/mm3 (4.6-6.20); Red Cell Distribution Width 11.7 % (11.5-14.5); White Blood Count 16.3 K/mm3 (4.5-10.0)
[2024-12-28 15:18] LABS: Prothrombin Time 13.6 Seconds (11.1-14.7)
[2024-12-28 15:19] LABS: Partial Thromboplastin Time 33.3 Seconds (22.3-36.8)
[2024-12-28 15:25] LABS: Troponin I < 0.012 ng/mL (0.000-0.034)
[2024-12-28 15:35] LABS: Influenza A QL RT-PCR Negative (Negative); Influenza B QL RT-PCR Negative (Negative); RSV RNA, RT-PCR Negative (Negative); SARS-CoV-2 RNA PCR Negative (Negative)
[2024-12-28 15:40] LABS: Alanine Aminotransferase 10 U/L (6-50); Albumin Level 3.2 g/dL (3.5-5.1); Alkaline Phosphatase 66 U/L (38-126); Anion Gap 7 mmol/L (4-12); Aspartate Amino Transferase 20 U/L (17-59); Bilirubin,Total 0.6 mg/dL (0.2-1.3); Blood Urea Nitrogen 13 mg/dL (9-20); Calcium 8.5 mg/dL (8.4-10.2); Carbon Dioxide 28 mmol/L (22-30); Chloride 101 mmol/L (98-107); Estimated CRCL calculation 127 ml/min; Estimated Glomerular Filt Rate > 60; Glucose 264 mg/dL (65-110); Potassium 3.6 mmol/L (3.4-5.0); Sodium 136 mmol/L (137-145)
[2024-12-28 17:00] VITALS: BP 136/88; PULSE 88; RESP 16; TEMP 36.6; O2SAT 96
[2024-12-28 17:10] LABS: Lactic Acid Reflex 0.9 mmol/L (0.7-2.0)
[2024-12-28] MEDS: SODIUM CHLORIDE 0.9% IV 1,000 ML 999 ML IV CONT (17:34)
[2024-12-28] MEDS: cefTRIAXone 2 GM/NS 100 ML 2 GM/100 ML BAG IVPB (17:35)
[2024-12-28] MEDS: AZITHROMYCIN 500 MG/NS 250 ML 500 MG/250 ML BAG 250 MG IVPB (17:36)
[2024-12-28] MEDS: LIDOCAINE 5% PATCH 1 PATCH TRANSDERM (17:44)
[2024-12-28] MEDS: ACETAMINOPHEN 500 MG TABLET 1000 MG PO (17:44)
[2024-12-28 18:07] VITALS: BP 136/80; PULSE 89; RESP 20; TEMP 36.6; O2SAT 95
[2024-12-28 19:20] VITALS: BP 134/88; PULSE 80; RESP 16; TEMP 36.6; O2SAT 96
== END 2024-12-28 19:22 | disposition home or self-care (01) ==
PROVIDERS: Physician Assistant; Emergency Provider Student in an Organized Health Care Education/Training Program; PCP Family Medicine
DX: J18.9 Pneumonia, unspecified organism (principal); E11.65 Type 2 diabetes mellitus with hyperglycemia; D72.829 Elevated white blood cell count, unspecified; R07.9 Chest pain, unspecified; Z20.822 Contact with and (suspected) exposure to COVID-19; E11.319 Type 2 diabetes mellitus with unspecified diabetic retinopathy without macular edema; E11.40 Type 2 diabetes mellitus with diabetic neuropathy, unspecified; E78.5 Hyperlipidemia, unspecified; F17.210 Nicotine dependence, cigarettes, uncomplicated; Z79.4 Long term (current) use of insulin; Z79.899 Other long term (current) drug therapy; R00.0 Tachycardia, unspecified
CPT/HCPCS: 36415; 71250; 80053; 83605; 84484; 85025; 85610; 85730; 87040; 87637; 93005; 96365; 96368; 99284; A9270; J0456; J0696; J7030